=== PATIENT | male | born 1940 | race Caucasian/White ===

== ENCOUNTER → 2018-03-20 10:23 | Outpatient (CLI) | payer MEDICARE, SELFPAY ==
[2018-03-20 11:21] LABS: Add Manual Diff / Slide Review NO; Basophils Percent Auto 1.1 % (0-2); Eosinophils Percent Auto 6.7 % (2-4); Hematocrit 42.5 % (41-53); Hemoglobin 14.5 g/dL (13.5-17.5); Lymphocytes Percent Auto 21.4 % (25-40); Mean Corpuscular Hemoglobin 28.3 PG (26-34); Mean Corpuscular Volume 83.1 fL (80-100); Monocytes Percent Auto 11.7 % (3-14); Neutrophils Absolute Auto 3400 /uL (3000-5900); Neutrophils Percent Auto 59.1 % (50-75); Platelet Count 244 X10^3/uL (150-400); Red Blood Cell Count 5.12 X10^6/uL (4.5-5.9); White Blood Cell Count 5.7 X10^3/uL (4.5-11.0)
[2018-03-20 12:14] LABS: D Dimer 281 ng/mL (<230)
[2018-03-20 12:18] LABS: Alanine Aminotransferase 16 IU/L (21-72); Albumin 4.5 g/dL (3.5-5.0); Albumin Globulin Ratio 1.5 (1.0-2.8); Alkaline Phosphatase 92 U/L (38-126); Aspartate Aminotransferase 26 IU/L (17-59); BUN Creatinine Ratio 26.3 (6-22); Bilirubin Total 0.8 mg/dL (0.2-1.3); Blood Urea Nitrogen 21 mg/dL (9-20); Calcium 9.5 mg/dL (8.4-10.2); Carbon Dioxide 27 mmol/L (22-32); Chloride 104 mmol/L (98-107); Estimated Glomerular Filt Rate > 60.0 mL/min (>60); Glucose 84 mg/dL (80-110); HEMOLYSIS < 15 (0-50); Potassium 4.3 mmol/L (3.4-5.1); Sodium 144 mmol/L (137-145); Total Protein 7.5 g/dL (6.3-8.2)
[2018-03-20 12:31] LABS: Troponin I < 0.012 ng/mL (0.01-0.034)
[2018-03-20 12:53] LABS: Thyroid Stimulating Hormone 2.97 uIU/mL (0.47-4.68)
== END ==
PROVIDERS: Family Provider Family Medicine; PCP Family Medicine; Visit Provider Internal Medicine
DX: I10 Essential (primary) hypertension (principal); R06.00 Dyspnea, unspecified; I48.91 Unspecified atrial fibrillation
CPT/HCPCS: 36415; 80053; 83880; 84443; 84484; 85025; 85379

== ENCOUNTER → 2018-03-26 08:34 | Outpatient (CLI) | payer MEDICARE, SELFPAY ==
--- NOTE | 2018-03-26 08:36 | DI.CT.S_ITS ---
PROCEDURE: CT ANGIO CHEST INDICATIONS: Shortness of breath. TECHNIQUE: After the administration of intravenous contrast, 2 mm thick sections acquired from the pulmonary apices to the posterior costophrenic angles. 3-dimensional maximum intensity projection (MIP) coronal and sagittal reformats were then acquired through the thorax. For radiation dose reduction, the following was used: automated exposure control, adjustment of mA and/or kV according to patient size. COMPARISON: None. FINDINGS: Image quality: Excellent. Pulmonary arteries: Pulmonary arteries are normal in size, and demonstrate no intraluminal filling defects to suggest central pulmonary embolism. Lungs and pleura: There is a spiculated area of consolidation within the left lung apex, which measures approximately 2.9 x 2.2 cm (image 29, series 4). Bronchial wall thickening is noted involving the left lower lobe. Paraseptal emphysematous changes and mild centrilobular emphysematous changes are noted within the bilateral lung apices. No large area of consolidation is evident. There is no pleural effusion or pneumothorax. Mediastinum: Heart size is mildly enlarged, without pericardial effusion. No mediastinal or hilar adenopathy. There is aortic atherosclerosis. Aneurysmal dilatation of the ascending thoracic aorta is present, measuring up to 4.3 cm. Esophagus is normal in caliber. There is a moderate-sized hiatal hernia. Bones and chest wall: No suspicious bony lesions. Ribs and thoracic spine appear intact throughout. Moderate multilevel degenerative changes of the spine and shoulders are noted. Thyroid gland is not adequately evaluated. No axillary or supraclavicular adenopathy. Abdomen: Included portions of the upper abdomen demonstrate extensive diverticulosis of the transverse colon. There is non-masslike enlargement of the right adrenal gland. IMPRESSION: 1. No pulmonary emboli. 2. Left upper lobe nodule/mass. CT guided percutaneous biopsy is recommended for diagnosis. 3. Cardiomegaly without overt heart failure. 4. Ascending thoracic aorta aneurysm. 5. Extensive colonic diverticulosis. Dictated by: Angelo Rucker M.D. on 03/26/2018 at 11:04 Approved by: Angelo Rucker M.D. on 03/26/2018 at 11:13
--- NOTE | 2018-03-26 08:36 | DI.ECHO.S_ITS ---
[facility] +---------+ : : [address] : : : : [id number] : : : : Phone: [phone]+ Echocardiogram Report + + :Name: TANO QUACH Study Date: 03/26/2018 Height: 68 in : :[facility] Weight: 215 lb : : Gender: Male BSA: 2.1 m2 : :: 1940 Age: 77 yrs BP: 160/94 mmHg: :Reason For Study: Dyspnea : : Performed By: Renetta Harrison : :Referring: DENITA MAST : + + Interpretation Summary There is mild concentric left ventricular hypertrophy. Left ventricular systolic function is normal without focal wall motion abnormalities. The ejection fraction is estimated to be 55-60%. Diastolic function could not be accurately assessed due to atrial fibrillation. The right ventricle is mildly dilated. Right ventricular systolic function is at the lower limits of normal. The right ventricular systolic pressure is estimated at 30 mmHg assuming a right atrial pressure of 8 mm Hg. The left atrium is severely dilated. The right atrium is moderately dilated. There is at most mild aortic stenosis. There is mild aortic regurgitation. There is no other significant valvular heart disease. The aortic root is mildly dilated. The ascending aorta is mildly enlarged. Procedure: A two-dimensional transthoracic echocardiogram with color flow and Doppler was performed. The study quality was technically adequate. Comparison is made with the echocardiogram of 5-4-07. The patient was in atrial fibrillation with heart rates between 54-74 bpm during the exam. Left Ventricle: The left ventricle is normal in size. There is mild concentric left ventricular hypertrophy. Left ventricular systolic function is normal without focal wall motion abnormalities. The ejection fraction is estimated to be 55-60%. Diastolic function could not be accurately assessed due to atrial fibrillation. Right Ventricle: The right ventricle is mildly dilated. Right ventricular systolic function is at the lower limits of normal. Atria: The left atrium is severely dilated. The right atrium is moderately dilated. The interatrial septum is intact with no evidence for an atrial septal defect. Mitral Valve: The mitral valve leaflets appear mildly thickened, but open well. There is trace mitral regurgitation. Aortic Valve: The aortic valve is trileaflet. The aortic valve is moderately calcified. Leaflet mobility is mild to moderately reduced. There is mild aortic stenosis. There is mild aortic regurgitation. Tricuspid Valve: The tricuspid valve leaflets are thin and pliable. There is mild tricuspid regurgitation. The right ventricular systolic pressure is estimated at 30 mmHg assuming a right atrial pressure of 8 mm Hg. Pulmonic Valve: The pulmonic valve is not well seen, but is grossly normal. There is trace pulmonic regurgitation. There is no other significant valvular heart disease. Great Vessels: The aortic root is mildly dilated. The ascending aorta is mildly enlarged. The aortic arch is normal in size. The IVC is dilated (diameter is greater than 2.1 cm) yet it collapses greater than 50% with a sniff. This suggests a right atrial pressure of 8 mm Hg. Pericardium/ Pleura There is no pericardial effusion. There is no pleural effusion. MMode/2D Measurements & Calculations LVIDd: 4.5 cm LVOT diam: 2.2 cm LVIDs: 2.8 cm Ao root diam: 3.9 cm FS: 37.6 % Aortic Jxn: 3.3 cm IVSd: 1.2 cm asc Aorta Diam: 3.8 cm LVPWd: 0.99 cm Ao Arch Diam (Prox Trans): 3.0 cm LV dee. diameter/BSA (cm/m^2): 2.2 LV sys. diameter/BSA (cm/m^2): 1.3 LA dimension: 4.9 cm RA long axis: 6.6 cm LA A2 area: 30.4 cm2 RA area: 27.0 cm2 LA A4 area: 33.3 cm2 RA vol: 93.5 ml LA length (vol): 7.0 cm RA : 44.3 ml/m2 LA vol: 122.4 ml IVC diam: 2.6 cm LA vol index: 58.1 ml/m2 RVDd major: 6.1 cm RVD1 (basal): 4.3 cm RVD2 (mid): 3.7 cm BARB (plan): 2.1 cm2 Doppler Measurements & Calculations Ao V2 max: 157.9 cm/sec LVOT Max Casper: 70.5 cm/sec Ao V2 mean: 94.8 cm/sec LV V1 max P.0 mmHg Ao max P.0 mmHg LV V1 VTI: 15.1 cm Ao mean P.5 mmHg BARB(I,D): 1.7 cm2 Ao V2 VTI: 35.7 cm BARB(V,D): 1.8 cm2 sev ratio: 0.42 BARB indexed to BSA (cm^2/m^2): 0.79 Med Peak E' Casper: 5.7 cm/sec TR max casper: 234.8 cm/sec Lat Peak E' Casper: 8.3 cm/sec TR max P.1 mmHg MV P1/2t: 61.3 msec PA V2 max: 53.8 cm/sec MVA(VTI): 3.1 cm2 PA V2 mean: 30.7 cm/sec PA mean P.48 mmHg PA Accel Time: 0.07 sec MV V2 mean: 40.4 cm/sec MV P1/2t max casper: 102.4 cm/sec MV mean P.0 mmHg MVA(P1/2t): 3.6 cm2 MV V2 VTI: 19.0 cm Reading Physician:CHRIS
== END ==
PROVIDERS: Family Provider Family Medicine; PCP Family Medicine; Visit Provider Internal Medicine
DX: I35.2 Nonrheumatic aortic (valve) stenosis with insufficiency (principal); I48.91 Unspecified atrial fibrillation; R06.00 Dyspnea, unspecified; R06.02 Shortness of breath; R91.1 Solitary pulmonary nodule; I51.7 Cardiomegaly; I71.2 Thoracic aortic aneurysm, without rupture; K57.30 Diverticulosis of large intestine without perforation or abscess without bleeding; K44.9 Diaphragmatic hernia without obstruction or gangrene
CPT/HCPCS: 0296T; 71275; 93306; Q9967

== ENCOUNTER → 2018-03-26 12:41 | Outpatient (CLI) | payer MEDICARE, SELFPAY ==
--- NOTE | 2018-04-05 17:23 | PM.CARDMON.1 ---
Surveillance Specialist Report Referral & Results Date Patient Seen: 03/26/18 Requesting provider: Jose Bhat Indication: Atrial fibrillation Duration of monitoring (days): 3 Diary information: There were no diary entries Therefore patient triggered events associated with atrial fibrillation and PVCs Data: Patient was continuously in atrial fibrillation Minimum heart rate was 34 beats per minute at 19:11 on 03/26/2018 Maximum heart rate was 145 beats per minute at 08:17 on March 28, 2018 Patient had 1 pause that lasted 3.3 sec. Very rare PVCs were identified comprising less than 1% of identified ventricular depolarizations On average patient's heart rate was between 50 and 100 beats per minute. Impression: Atrial fibrillation as above. A single pause of 3.3 sec was identified No other significant dysrhythmias identified
== END ==
PROVIDERS: Family Provider Family Medicine; PCP Family Medicine; Visit Provider Internal Medicine
DX: I48.91 Unspecified atrial fibrillation (principal)
CPT/HCPCS: 0296T; 0298T

== ENCOUNTER 2018-04-11 07:57 | Day surgery (SDC) | payer MEDICARE, SELFPAY ==
[2018-04-11] VITALS (12 sets, daily range): BP systolic 133–200; BP diastolic 78–113; PULSE 63–90; RESP 15–22; TEMP 36.3–36.8; O2SAT 94–100; BMI 31.9
--- NOTE | 2018-04-11 | PATH_ITS ---
[facility] Accession Number: [id number] . 01 Material submitted: . LUNG MASS . 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 The following tests ordered to be reported by addendum: ALK, EGFR, ROS-1 and PD-L1. . . COMMENT: The results of this evaluation were telephoned to Dr. Ajit Rosario at 0905 on 04/12/2018. . Case reviewed by Dr. Pedro Dewitt, who agrees with the diagnosis. MRV/04/12/2018 . 02 Electronically signed: . Patricio Barrera MD, Pathologist NPI- [id number] . 01 Gross description: . Received in one formalin-filled container labeled with the patient's name and designated lung mass, are three 0.1 cm in diameter, cylindrical-shaped portions of tissue that range in length from 0.2 cm to 0.8 cm, entirely submitted in one cassette. ([id number]) /FRR . 02 Pathologist provided ICD-10: C34.80 . 02 CPT . 963244 Performed at: 01 [facility] [address] [facility] [place], [place], [place] [id number] MD Michel Hays MD Phone: [phone] Performed at: 02 [facility] [address] [place], [place] [id number] MD Kale Dewitt MD Phone: [phone]
[2018-04-11 08:37] LABS: Platelet Count 240 X10^3/uL (150-400)
[2018-04-11 08:55] LABS: INR 1.1 (0.9-1.3); Prothrombin Time 11.8 SECONDS (10.1-12.7)
[2018-04-11] MEDS: MIDAZOLAM 2 MG/2 ML VIAL IV (10:30)
--- NOTE | 2018-04-11 11:07 | DI.CT.S_ITS ---
PROCEDURE: CT BIOPSY LUNG LT Sedation analgesia for 20 minutes. INDICATIONS: lung mass TECHNIQUE: The indications, alternatives, benefits, risks, and possible complications of the procedure were communicated to the patient. Informed written consent from the patient was obtained and placed in the chart. Continuous EKG and hemodynamic monitoring was started by trained personnel. The patient was brought to the CT suite and uniform attendant spiral CT imaging was performed with localization grid. The appropriate site for percutaneous access to the biopsy target was marked, was prepped and draped sterilely, and was infused with local anaesthesia. Under CT guidance, a core biopsy trocar and needle set was advanced to the biopsy target, and specimen(s) were obtained. The trocar and needle were then removed, and the patient was sent for post-procedure monitoring. COMPARISON: [facility], CT, CT ANGIO CHEST, 03/26/2018, 10:34. FINDINGS: Biopsy site: left upper lobe mass Needle: 20 gauge biopsy needle with introducer trocar. Number of passes: 3 Medications: 1% lidocaine for local anaesthesia. IV Fentanyl and Versed for conscious sedation for 20 minutes (see nursing record). Complications: None. IMPRESSION: Successful CT-guided biopsy of left upper lobe lung mass. Dictated by: Alberto Rosario M.D. on 04/11/2018 at 11:12 Approved by: Alberto Rosario M.D. on 04/11/2018 at 11:15
[2018-04-11] MEDS: fentaNYL 100 MCG/2 ML INJ IV (11:44)
--- NOTE | 2018-04-11 12:21 | SUR.PHASEII ---
Post Fentanyl with voiced quick relief to chest pain. With chest pain, location was at needle biopsy site and no issues with resps or sats noted/voiced.
--- NOTE | 2018-04-11 14:00 | DI.RAD.S_ITS ---
PROCEDURE: XR CHEST 1V INDICATIONS: Post Lung Biopsy TECHNIQUE: One view of the chest was acquired. COMPARISON: [facility], CT, CT ANGIO CHEST, 03/26/2018, 10:34. [facility], CR, CHEST 1 VIEW, 01/17/2010, 19:51. FINDINGS: Surgical changes and devices: None. Lungs and pleura: No pleural effusions or pneumothorax. 2.9 x 2.3 cm left upper lobe nodular density is seen, which was also noted on previous CT study. Mediastinum: Mediastinal contours appear normal. Heart size is normal. Bones and chest wall: No suspicious bony lesions. Overlying soft tissues appear unremarkable. IMPRESSION: Left upper lobe mass. No pneumothorax. Dictated by: Robert Blanton M.D. on 04/11/2018 at 14:12 Approved by: Robert Blanton M.D. on 04/11/2018 at 14:15
--- NOTE | 2018-04-11 14:16 | SUR.PHASEII ---
Spoke with Dr. Rosario about CXR findings. Patient understands the need for follow up CXR and if okay the need for monitoring unusual respiratory difficu;lties.
--- NOTE | 2018-04-11 15:24 | DI.RAD.S_ITS ---
PROCEDURE: XR CHEST 1V INDICATIONS: Pneumothorax follow up TECHNIQUE: One view of the chest was acquired. COMPARISON: [facility], CR, XR CHEST 1V, 04/11/2018, 13:40. FINDINGS: Surgical changes and devices: None. Lungs and pleura: There is a small left apical pneumothorax, which is stable compared to last exam. A left upper lobe mass is again noted. No pleural effusions. Mediastinum: Mediastinal contours appear normal. Heart size is normal. Bones and chest wall: No suspicious bony lesions. Overlying soft tissues appear unremarkable. IMPRESSION: 1. Stable small left apical pneumothorax after lung biopsy. The patient denies chest pain or shortness of breath. His vitals are stable. The patient lives in [place], [place] with his girlfriend (significant other). He is home is approximately 20 minutes from [facility]. It is safe to discharge him to Home. I discussed with the patient that if he develops symptoms of chest pain or shortness of breath, he should immediately go to the emergency department. The discharge instructions were also discussed with him by the nursing staff. 2. Left upper lobe mass. Dictated by: Alberto Rosario M.D. on 04/11/2018 at 15:36 Approved by: Alberto Rosario M.D. on 04/11/2018 at 15:43
--- NOTE | 2018-04-11 18:17 | PC.NURSE ---
AT 11am today I gave Denny Reed RN report on this patient in the PACU following a lung biopsy. VSS. see procedural sedation note.
== END 2018-04-11 15:43 | disposition home or self-care (01) ==
PROVIDERS: Radiology Diagnostic Radiology; PCP Family Medicine; Visit Provider Internal Medicine
PROC: BB24ZZZ Computerized Tomography (CT Scan) of Bilateral Lungs (ICD-10-PCS; CPT 32408; principal; 2018-04-11 10:00)
DX: C34.80 Malignant neoplasm of overlapping sites of unspecified bronchus and lung (principal); Z01.812 Encounter for preprocedural laboratory examination; G47.33 Obstructive sleep apnea (adult) (pediatric); R06.00 Dyspnea, unspecified
CPT/HCPCS: 32405; 71045; 77012; 85049; 85610; 88305; J2250; J3010

== ENCOUNTER → 2018-04-30 08:19 | Outpatient (CLI) | payer MEDICARE, SELFPAY ==
[2018-04-30 09:50] LABS: Platelet Count 247 X10^3/uL (150-400)
[2018-04-30 09:58] LABS: INR 1.1 (0.9-1.3); Prothrombin Time 11.9 SECONDS (10.1-12.7)
[2018-04-30 10:05] LABS: BUN Creatinine Ratio 31.3 (6-22); Blood Urea Nitrogen 25 mg/dL (9-20); Calcium 9.6 mg/dL (8.4-10.2); Carbon Dioxide 29 mmol/L (22-32); Chloride 103 mmol/L (98-107); Estimated Glomerular Filt Rate > 60.0 mL/min (>60); Glucose 116 mg/dL (80-110); HEMOLYSIS < 15 (0-50); Potassium 3.8 mmol/L (3.4-5.1); Sodium 143 mmol/L (137-145)
== END ==
PROVIDERS: Internal Medicine; PCP Family Medicine; Visit Provider Hospitalist
DX: I51.9 Heart disease, unspecified (principal); Z01.812 Encounter for preprocedural laboratory examination
CPT/HCPCS: 36415; 80048; 85049; 85610

== ENCOUNTER → 2018-05-06 08:09 | Outpatient (CLI) | payer MEDICARE, SELFPAY ==
[2018-05-06 09:14] LABS: Add Manual Diff / Slide Review NO; Eosinophils Percent Auto 7.3 % (2-4); Hematocrit 44.7 % (41-53); Hemoglobin 15.2 g/dL (13.5-17.5); Lymphocytes Percent Auto 15.8 % (25-40); Mean Corpuscular Hemoglobin 28.2 PG (26-34); Monocytes Percent Auto 8.9 % (3-14); Neutrophils Absolute Auto 3900 /uL (3000-5900); Platelet Count 258 X10^3/uL (150-400); Red Blood Cell Count 5.39 X10^6/uL (4.5-5.9); Red Cell Distribution Width 14.7 % (11.6-14.8); White Blood Cell Count 5.9 X10^3/uL (4.5-11.0)
[2018-05-06 09:44] LABS: Alanine Aminotransferase 19 IU/L (21-72); Albumin 4.5 g/dL (3.5-5.0); Albumin Globulin Ratio 1.4 (1.0-2.8); Alkaline Phosphatase 112 U/L (38-126); Aspartate Aminotransferase 28 IU/L (17-59); Bilirubin Total 0.7 mg/dL (0.2-1.3); Blood Urea Nitrogen 24 mg/dL (9-20); Calcium 9.6 mg/dL (8.4-10.2); Carbon Dioxide 32 mmol/L (22-32); Chloride 104 mmol/L (98-107); Cholesterol 193 mg/dL (140-199); Estimated Glomerular Filt Rate > 60.0 mL/min (>60); Globulin 3.2 g/dL (1.7-4.1); Glucose 123 mg/dL (80-110); HDL Cholesterol 40 mg/dL (40-60); HEMOLYSIS < 15 (0-50); LDL Cholesterol Calculated 115 mg/dL (<100); Potassium 4.5 mmol/L (3.4-5.1); Sodium 147 mmol/L (137-145); Total Protein 7.7 g/dL (6.3-8.2); Triglycerides 192 mg/dL (35-150)
[2018-05-06 10:22] LABS: Prostate Specific Antigen Scrn < 0.064 ng/mL (0.1-4.0)
== END ==
PROVIDERS: PCP Family Medicine; Visit Provider Family Medicine
DX: I10 Essential (primary) hypertension (principal); E78.2 Mixed hyperlipidemia; I48.91 Unspecified atrial fibrillation; R97.20 Elevated prostate specific antigen [PSA]
CPT/HCPCS: 36415; 80053; 80061; 84443; 85025; G0103

== ENCOUNTER → 2018-05-17 08:45 | Outpatient (CLI) | payer MEDICARE, SELFPAY ==
--- NOTE | 2018-05-20 14:20 | PM.PFT.1 ---
Pulmonary Function Test Referral & Results Date Patient Seen: 05/17/18 Requesting provider: Dick Arellano Indication: Lung cancer Results: The spirometry demonstrates an FVC of 3.03 L which is 80% of predicted. The FEV1 was measured at 2.27 L which is 84% of predicted. The FEV1/FVC ratio was 75 which is 103% of predicted. Following the administration of bronchodilator there was no appreciable change. Lung volumes show an SVC of 2.99 L which is 72% of predicted. The diffusing capacity was measured at 20.26 which is 68% of predicted. No hemoglobin value was provided, so no correction for potential anemia could be made, if appropriate. Interpretation: This study demonstrates mild obstructive lung disease based on reduced FEV1 and shape of flow volume loop. There is no significant evidence of improvement following bronchodilator administration There is also mild restrictive lung disease present based on reduction lung volumes There is a more significant reduction in diffusing capacity suggesting some element of disease at the capillary alveolar level This is all consistent with diagnosis of COPD Clinical correlation suggested
== END ==
PROVIDERS: PCP Family Medicine; Visit Provider Internal Medicine Hematology & Oncology
DX: C34.12 Malignant neoplasm of upper lobe, left bronchus or lung (principal)
CPT/HCPCS: 94010; 94060

== ENCOUNTER → 2018-05-21 09:33 | Outpatient (CLI) | payer MEDICARE, SELFPAY ==
[2018-05-21 10:30] LABS: BUN Creatinine Ratio 24.4 (6-22); Blood Urea Nitrogen 22 mg/dL (9-20); Estimated Glomerular Filt Rate > 60.0 mL/min (>60)
== END ==
PROVIDERS: PCP Family Medicine; Visit Provider Family Medicine
DX: Z01.812 Encounter for preprocedural laboratory examination (principal)
CPT/HCPCS: 36415; 82565; 84520

== ENCOUNTER → 2018-05-23 12:52 | Outpatient (CLI) | payer MEDICARE, SELFPAY ==
--- NOTE | 2018-05-23 | DI.CT.S_ITS ---
PROCEDURE: CT CHEST W CON INDICATIONS: NEWLY DIAGNOSED LUNG CANCER TECHNIQUE: After the administration of intravenous contrast, 5 mm thick sections acquired from the pulmonary apices to the posterior costophrenic angles. 7 mm thick coronal and sagittal MIP reformats were acquired. For radiation dose reduction, the following was used: automated exposure control, adjustment of mA and/or kV according to patient size. COMPARISON: [facility], CR, XR CHEST 1V, 04/11/2018, 15:05. [facility], CT, CT ANGIO CHEST, 03/26/2018, 10:34. FINDINGS: Image quality: Excellent. Lungs and pleura: There is a 2.8 x 2.1 cm spiculated mass in the left upper lobe anteriorly, unchanged in size since 03/26/2018. Small left apical pneumothorax seen on 04/11/2018 has resolved. Mild emphysema. No pleural effusions or pneumothorax. Central and peripheral airways are patent and normal in caliber. Mediastinum: Heart size is normal. No pericardial effusion. No mediastinal or hilar adenopathy by size criteria. Thoracic aorta and central pulmonary arteries are normal in size. Moderate aortic calcification consistent with atherosclerosis. Esophagus is normal in caliber. There is a small moderate sized hiatal hernia. Bones and chest wall: No suspicious bony lesions. No vertebral body compression fractures. No axillary or supraclavicular adenopathy by size criteria. Thyroid gland is normal. Abdomen: Visualized upper abdominal solid organs appear normal. Upper abdominal bowel loops are normal in caliber. Atherosclerotic plaques noted in the proximal abdominal aorta. Colonic diverticula are present. IMPRESSION: 1. Spiculated mass in the left upper lobe anteriorly consistent with lung cancer. 2. Mild emphysema. 3. No mediastinal or hilar lymphadenopathy. 4. Hiatal hernia. 5. Colonic diverticulosis. Dictated by: Alberto Rosario M.D. on 05/23/2018 at 16:48 Approved by: Alberto Rosario M.D. on 05/23/2018 at 16:59
--- NOTE | 2018-05-23 12:54 | DI.MRI.S_ITS ---
PROCEDURE: MR HEAD/BRAIN WO/W CON INDICATIONS: NEWLY DIAGNOSED LUNG CANCER TECHNIQUE: Noncontrast axial T1 spin echo, axial T2 fast spin echo, sagittal and axial FLAIR, coronal T2 fast spin echo, axial gradient echo, axial diffusion and ADC through the brain. After the administration of contrast, axial and coronal 3D VIBE or T1 spin echo with fat saturation through the brain. COMPARISON: None. FINDINGS: Image quality: Excellent. CSF Spaces: Basal cisterns are patent. No extra-axial fluid collections. Ventricles are normal in size and shape. Brain: No midline shift. No intracranial bleeds or masses. No abnormal intracranial enhancement. The brainstem appears normal. Diffusion-weighted images demonstrate no acute ischemic insults. No areas of encephalomalacia. No GRE weighted abnormalities identified in the brain parenchyma. A few, scattered, punctate foci of increased T2 signal noted in the periventricular and subcortical white matter tracts. Normal intravascular flow voids are present. Skull and face: Calvarial marrow is normal in signal. Orbits appear normal. Sinuses: Polypoid mucosal thickening noted in the maxillary sinuses bilaterally. Mild mucosal thickening scattered throughout the ethmoid air cells bilaterally. The mastoids appear clear. IMPRESSION: 1. No acute intracranial disease process. 2. No evidence of metastatic disease. 3. Moderate, diffuse cerebral volume loss. 4. Mild periventricular and subcortical white matter chronic microvascular ischemic changes. 5. Bilateral maxillary sinus and ethmoid air cell mucosal thickening. Please correlate with clinical data to exclude sinusitis. Dictated by: Manisha Mata MD, PhD on 05/23/2018 at 15:13 Approved by: Manisha Mata MD, PhD on 05/23/2018 at 15:17
== END ==
PROVIDERS: PCP Family Medicine; Visit Provider Internal Medicine Hematology & Oncology
DX: C34.12 Malignant neoplasm of upper lobe, left bronchus or lung (principal); J43.9 Emphysema, unspecified; K44.9 Diaphragmatic hernia without obstruction or gangrene; K57.90 Diverticulosis of intestine, part unspecified, without perforation or abscess without bleeding
CPT/HCPCS: 70553; 71260; Q9967

== ENCOUNTER → 2018-06-03 14:00 | Outpatient (CLI) | payer MEDICARE, SELFPAY ==
[2018-06-03 16:04] LABS: Blood Urea Nitrogen 27 mg/dL (9-20); Calcium 9.4 mg/dL (8.4-10.2); Carbon Dioxide 32 mmol/L (22-32); Chloride 98 mmol/L (98-107); Estimated Glomerular Filt Rate > 60.0 mL/min (>60); Glucose 95 mg/dL (80-110); HEMOLYSIS < 15 (0-50); Potassium 3.5 mmol/L (3.4-5.1); Sodium 142 mmol/L (137-145)
== END ==
PROVIDERS: PCP Family Medicine; Visit Provider Hospitalist
DX: I50.33 Acute on chronic diastolic (congestive) heart failure (principal)
CPT/HCPCS: 36415; 80048

== ENCOUNTER 2018-06-18 10:43 | Emergency (ER) | payer MEDICARE, SELFPAY ==
[2018-06-18 10:45] VITALS: BP 165/112; PULSE 94; RESP 19; TEMP 36.7; O2SAT 97
--- NOTE | 2018-06-18 11:17 | DI.RAD.S_ITS ---
PROCEDURE: XR CHEST 1V INDICATIONS: cough and lung cancer TECHNIQUE: One view of the chest was acquired. COMPARISON: [facility], , XR CHEST 1V, 04/11/2018, 15:05. FINDINGS: Surgical changes and devices: None. Lungs and pleura: No pleural effusions or pneumothorax. 2.1 x 1.7 cm nodular density is again seen in left upper lung field consistent with previous CT finding of left upper lobe mass. Right lung is clear. Mediastinum: Mediastinal contours appear normal. Heart size is enlarged. Bones and chest wall: No suspicious bony lesions. Overlying soft tissues appear unremarkable. IMPRESSION: Left upper lobe mass. No focal infiltrate or pneumothorax. Cardiomegaly. Dictated by: Robert Blanton M.D. on 06/18/2018 at 11:50 Approved by: Robert Blanton M.D. on 06/18/2018 at 11:52
[2018-06-18 11:21] VITALS: PULSE 76; RESP 26; O2SAT 96
[2018-06-18] MEDS: ALBUTEROL/IPRATROPIUM 3 ML AMPUL INH (11:21)
--- NOTE | 2018-06-18 11:27 | ED.URI ---
HPI - URI/Sore Throat General Chief Complaint: Upper Respiratory Symptoms Stated Complaint: Thinks pneumonia Time Seen by Provider: 06/18/18 11:07 Source: patient Mode of arrival: ambulatory Limitations: no limitations History of Present Illness HPI Narrative: Patient is 69-year-old male who presents with productive cough. It has been ongoing for the last for 5 days. He is actually scheduled tomorrow to have a lung mass removed he has known lung cancer. His he also has atrial fibrillation not currently on anticoagulation. He says that he has had significant more productive cough he denies any shortness of breath he has no chest pain no heart palpitations. He overall feels weak and tired he has been shaking no documented fever. MD Complaint: cough Related Data Home Medications Medication Instructions Recorded Confirmed aspirin 81 mg PO DAILY #0 01/17/10 06/18/18 furosemide [Lasix] 40 mg PO QAM 04/25/18 06/18/18 gemfibrozil 1 tab PO BID 06/18/18 06/18/18 Previous Rx's Medication Instructions Recorded metoprolol tartrate 50 mg tablet 50 mg PO QDAY #90 tab 03/14/18 albuterol sulfate 2 puff INHALATION Q4-6H PRN #8 gram 06/18/18 levofloxacin 750 mg PO DAILY #7 tab 06/18/18 Allergies Allergy/AdvReac Type Severity Reaction Status Date / Time No Known Drug Allergies Allergy Verified 05/09/18 10:17 Review of Systems Review of Systems All systems reviewed & are unremarkable except as noted in HPI and below Constitutional Reports fever(s), Denies malaise and Reports weakness ENT Ears, Nose, Mouth, and Throat: Denies change in voice, Denies neck pain and Denies sore throat Cardiovascular Denies chest pain, Denies irregular heart rhythm, Denies lightheadedness, Denies palpitations and Denies orthopnea Respiratory Reports as per HPI Gastrointestinal Gastrointestinal: Denies abdominal pain, Denies change in bowel habits, Denies diarrhea, Denies nausea and Denies vomiting Musculoskeletal Denies neck pain Integumentary/Breasts Denies pruritus, Denies erythema, Denies rash and Denies wounds Neurologic Reports weakness Endocrine Denies palpitations [facility] Medical History Claustrophobia (Acute) Atrial fibrillation (Chronic) Cataract (Chronic 2012) Diverticular disease (Chronic 2016) Hearing loss (Chronic) Hemorrhoids (Chronic) Hypertension (Chronic) Ulcerative colitis (Chronic) Urinary incontinence (Chronic 1992) Chicken pox (Resolved) Fractures (Resolved 2013) Measles (Resolved) Mumps (Resolved) Prostate cancer (Resolved) Surgical History History of radical prostatectomy (Acute) Anesthesia complication (Resolved) History of hip replacement (Resolved 2007) History of knee replacement (Resolved 2013) Status post hernia repair (Resolved) Social History household members: spouse Smoking Status: Former smoker Exam Initial Vital Signs Initial Vital Signs: Vital Signs Temperature 98.0 F 06/18/18 10:45 Pulse Rate 94 H 06/18/18 10:45 Respiratory Rate 19 06/18/18 10:45 Blood Pressure 165/112 H 06/18/18 10:45 Pulse Oximetry 97 06/18/18 10:45 GENERAL: Alert and oriented x3 elderly male cooperative no acute distress HEENT: Head atraumatic,EOMI, pupils reactive, face symmetric, moist mucous membranes CARDIOVASCULAR: Regular rate and rhythm without murmurs, rubs or gallops. RESPIRATORY: Decreased breath sounds at bases speaks in full sentences no wheezing rales or rhonchi ABDOMEN: Soft, nontender. Normoactive bowel sounds all 4 quadrants. No guarding or rebound. EXTREMITIES: Normal range of motion, no clubbing or edema. Neurovascularly intact NEUROLOGICAL: Alert and oriented x4.Normal gait and speech. Cranial nerves II through XII grossly intact. SKIN: Warm, dry, no laceration, no petechiae, no rashes or lesions. Course Orders Ordered: ED Orders 06/18/18 11:16 Consult to Respiratory Therapy Evaluate & Treat EKG-12 Lead Stat 06/18/18 11:17 XR chest 1V Stat 06/18/18 11:25 B Type Natriuretic Peptide Stat Complete Blood Count AUTO DIFF Stat Comprehensive Metabolic Panel Stat Lactate (Lactic Acid) Stat Partial Thromboplastin Time Stat Prothrombin Time INR Stat Troponin & CK Cardiac Panel Stat 06/18/18 11:52 Blood Culture Stat Discontinued Medications Albuterol/Ipratropium (Duoneb) 3 ml INH NOW ONE Stop: 06/18/18 11:17 Last Admin: 06/18/18 11:21 Dose: 3 ml Sodium Chloride (Normal Saline 0.9%) 1,000 mls @ 150 mls/hr IV CONT MICHAEL Last Infusion: 06/18/18 13:22 Dose: 0 mls/hr Admin: 06/18/18 11:45 Dose: 150 mls/hr Vital Signs - 8 hr 06/18/18 10:45 06/18/18 11:21 06/18/18 12:32 Temperature 98.0 F Pulse Rate 94 H 76 92 H Respiratory Rate 19 26 H 23 Blood Pressure 165/112 H Blood Pressure [Left Arm] 135/71 Pulse Oximetry 97 96 96 MDM - URI/Sore Throat Medical Records Attestation: I reviewed the patient's medical records. Lab Data Attestation: I reviewed the patient's lab results. Result diagrams: 06/18/18 11:25 06/18/18 11:25 Lab Results 06/18/18 06/18/18 06/18/18 Range/Units 11:25 11:25 11:25 WBC 7.2 (4.5-11.0) X10^3/uL RBC 4.67 (4.5-5.9) X10^6/uL Hgb 13.4 L (13.5-17.5) g/dL Hct 39.2 L (41-53) % MCV 83.9 (80-100) fL MCH 28.7 (26-34) PG MCHC 34.3 (30-36) % RDW 14.4 (11.6-14.8) % Plt Count 247 (150-400) X10^3/uL Neut % (Auto) 71.9 (50-75) % Lymph % (Auto) 11.8 L (25-40) % Hamlin % (Auto) 10.6 (3-14) % Eos % (Auto) 4.7 H (2-4) % Baso % (Auto) 1.0 (0-2) % Neut # (Auto) 5200 (8074-6861) /uL PT 12.4 (10.1-12.7) SECONDS INR 1.1 (0.9-1.3) APTT 32 (26.4-36.2) SECONDS Sodium 141 (137-145) mmol/L Potassium 3.9 (3.4-5.1) mmol/L Chloride 101 (98-107) mmol/L Carbon Dioxide 30 (22-32) mmol/L BUN 17 (9-20) mg/dL Creatinine 0.80 (0.66-1.25) mg/dL Estimated GFR > 60.0 (>60) mL/min BUN/Creatinine Ratio 21.3 (6-22) Glucose 105 (80-110) mg/dL Lactate (0.7-2.1) mmol/L Calcium 9.4 (8.4-10.2) mg/dL Total Bilirubin 0.8 (0.2-1.3) mg/dL AST 27 (17-59) IU/L ALT 20 L (21-72) IU/L Alkaline Phosphatase 111 (38-126) U/L Total Creatine Kinase 132 (55-170) U/L CK-MB (CK-2) 0.97 (<2.37) ng/mL CK-MB (CK-2) Rel Index 0.7 L (1.5-5.0) % Troponin I < 0.012 (0.01-0.034) ng/mL B-Natriuretic Peptide 356.0 H (<100) Total Protein 7.9 (6.3-8.2) g/dL Albumin 4.4 (3.5-5.0) g/dL Globulin 3.5 (1.7-4.1) g/dL Albumin/Globulin Ratio 1.3 (1.0-2.8) 06/18/18 Range/Units 11:25 WBC (4.5-11.0) X10^3/uL RBC (4.5-5.9) X10^6/uL Hgb (13.5-17.5) g/dL Hct (41-53) % MCV (80-100) fL MCH (26-34) PG MCHC (30-36) % RDW (11.6-14.8) % Plt Count (150-400) X10^3/uL Neut % (Auto) (50-75) % Lymph % (Auto) (25-40) % Hamlin % (Auto) (3-14) % Eos % (Auto) (2-4) % Baso % (Auto) (0-2) % Neut # (Auto) (4371-5625) /uL PT (10.1-12.7) SECONDS INR (0.9-1.3) APTT (26.4-36.2) SECONDS Sodium (137-145) mmol/L Potassium (3.4-5.1) mmol/L Chloride (98-107) mmol/L Carbon Dioxide (22-32) mmol/L BUN (9-20) mg/dL Creatinine (0.66-1.25) mg/dL Estimated GFR (>60) mL/min BUN/Creatinine Ratio (6-22) Glucose (80-110) mg/dL Lactate 1.0 (0.7-2.1) mmol/L Calcium (8.4-10.2) mg/dL Total Bilirubin (0.2-1.3) mg/dL AST (17-59) IU/L ALT (21-72) IU/L Alkaline Phosphatase (38-126) U/L Total Creatine Kinase (55-170) U/L CK-MB (CK-2) (<2.37) ng/mL CK-MB (CK-2) Rel Index (1.5-5.0) % Troponin I (0.01-0.034) ng/mL B-Natriuretic Peptide (<100) Total Protein (6.3-8.2) g/dL Albumin (3.5-5.0) g/dL Globulin (1.7-4.1) g/dL Albumin/Globulin Ratio (1.0-2.8) Imaging Data Chest x-ray: Radiologist's impression: ROCEDURE: XR CHEST 1V INDICATIONS: cough and lung cancer TECHNIQUE: One view of the chest was acquired. COMPARISON: [facility], , XR CHEST 1V, 04/11/2018, 15:05. FINDINGS: Surgical changes and devices: None. Lungs and pleura: No pleural effusions or pneumothorax. 2.1 x 1.7 cm nodular density is again seen in left upper lung field consistent with previous CT finding of left upper lobe mass. Right lung is clear. Mediastinum: Mediastinal contours appear normal. Heart size is enlarged. Bones and chest wall: No suspicious bony lesions. Overlying soft tissues appear unremarkable. IMPRESSION: Left upper lobe mass. No focal infiltrate or pneumothorax. Cardiomegaly. Dictated by: Robert Blanton M.D. on 06/18/2018 at 11:50 ECG Data Attestation: I personally reviewed and interpreted this ECG as follows: Prior ECG tracings: available for review Interpretation: AF flutter but rate [address] changes MDM Narrative Medical decision making narrative: Patient overall is feeling much better after albuterol. He does not appear toxic blood work and x-ray within normal limits. He feels ready and able to go home. He is not going to have surgery tomorrow. They are asking about if radiation is an option. I refer them back to the oncology for thoracic surgery for those answers. Discharge Plan Departure Patient Disposition: Home Clinical Impression: Atypical pneumonia Discharge Date/Time: 06/18/18 13:26 Interventions: ED Discharge Assessment Last Done: 06/18/18 13:25 Instructions: DI for Atypical Pneumonia Activity Restrictions/Additional Instructions: *You have been diagnosed with atypical pneumonia *What to do: *Continue to take medications as directed Levaquin 1 tab once a day 7 days Albuterol 1-2 puffs every 4 hr if needed for cough or shortness of breath *Follow up with your primary care provider in 2-3 days *Return to ER if you should have fever, worsening cough, decreased intake or any new, worsening or concerning symptoms Prescriptions: New levofloxacin 750 mg tablet 750 mg PO DAILY Qty: 7 RF: 0 albuterol sulfate 90 mcg/actuation HFA aerosol inhaler 2 puff INHALATION Q4-6H PRN (Reason: shortness of breath or wheezing) Qty: 8 RF: 0 No Action aspirin 81 mg Tablet,Delayed Release (Dr/Ec) 81 mg PO DAILY Qty: 0 RF: 0 metoprolol tartrate 50 mg tablet 50 mg PO QDAY Qty: 90 RF: 3 furosemide [Lasix] 40 mg Tablet 40 mg PO QAM RF: 0 gemfibrozil 600 mg tablet 1 tab PO BID RF: 0
[2018-06-18 11:36] LABS: Add Manual Diff / Slide Review NO; Eosinophils Percent Auto 4.7 % (2-4); Hematocrit 39.2 % (41-53); Hemoglobin 13.4 g/dL (13.5-17.5); Lymphocytes Percent Auto 11.8 % (25-40); Mean Corpuscular HGB Conc 34.3 % (30-36); Mean Corpuscular Hemoglobin 28.7 PG (26-34); Mean Corpuscular Volume 83.9 fL (80-100); Monocytes Percent Auto 10.6 % (3-14); Neutrophils Absolute Auto 5200 /uL (3000-5900); Neutrophils Percent Auto 71.9 % (50-75); Platelet Count 247 X10^3/uL (150-400); Red Blood Cell Count 4.67 X10^6/uL (4.5-5.9); Red Cell Distribution Width 14.4 % (11.6-14.8); White Blood Cell Count 7.2 X10^3/uL (4.5-11.0)
[2018-06-18 11:39] LABS: INR 1.1 (0.9-1.3); Prothrombin Time 12.4 SECONDS (10.1-12.7)
[2018-06-18 11:42] LABS: PTT Partial Thromboplastin Tim 32 SECONDS (26.4-36.2)
[2018-06-18 11:44] LABS: Alanine Aminotransferase 20 IU/L (21-72); Albumin 4.4 g/dL (3.5-5.0); Albumin Globulin Ratio 1.3 (1.0-2.8); Alkaline Phosphatase 111 U/L (38-126); Aspartate Aminotransferase 27 IU/L (17-59); BUN Creatinine Ratio 21.3 (6-22); Bilirubin Total 0.8 mg/dL (0.2-1.3); Blood Urea Nitrogen 17 mg/dL (9-20); Calcium 9.4 mg/dL (8.4-10.2); Carbon Dioxide 30 mmol/L (22-32); Chloride 101 mmol/L (98-107); Creatine Kinase 132 U/L (55-170); Estimated Glomerular Filt Rate > 60.0 mL/min (>60); Globulin 3.5 g/dL (1.7-4.1); Glucose 105 mg/dL (80-110); HEMOLYSIS 48 (0-50); Potassium 3.9 mmol/L (3.4-5.1); Sodium 141 mmol/L (137-145); Total Protein 7.9 g/dL (6.3-8.2)
[2018-06-18] MEDS: SODIUM CHLORIDE 0.9% 1,000 ML 150 ML IV (11:45)
[2018-06-18 11:57] LABS: Troponin I < 0.012 ng/mL (0.01-0.034)
[2018-06-18 12:00] LABS: CKMB % Relative Index 0.7 % (1.5-5.0); Creatine Kinase MB 0.97 ng/mL (<2.37)
[2018-06-18 12:32] VITALS: BP 135/71; PULSE 92; RESP 23; O2SAT 96
--- NOTE | 2018-06-20 16:49 | PC.NURSE ---
Placed follow up phone call. Pt reports feeling improvement though still short of breath. Has no questions about his discharge instruction.
== END 2018-06-18 13:26 | disposition home or self-care (01) ==
PROVIDERS: Emergency Provider Emergency Medicine; PCP Family Medicine
DX: J18.9 Pneumonia, unspecified organism (principal)
CPT/HCPCS: 36415; 36591; 71045; 80053; 82550; 82553; 83605; 83880; 84484; 85025; 85610; 85730; 87040; 93005; 94640; 96360; 96361; 99283; 99285

== ENCOUNTER → 2018-08-12 09:30 | Oncology outpatient (ONC) | payer MEDICARE, SELFPAY ==
--- NOTE | 2018-04-25 13:51 | ONC.CONS ---
History of Present Illness - Data of Consult Consult date: 04/25/18 Primary Care Provider: Sotero Vela MD - Consult Narrative Reason for consult: Newly diagnosed stage I left upper lung adenocarcinoma. Narrative: Naga Lorenz is a 77 year old male with multiple medical problems most notable for hypertension, hyperlipidemia, atrial fibrillation and prostate cancer. Patient came in today accompanied by his girlfriend. Patient reported that for the past 1 year, he has been having significant shortness of breath and is also getting progressively worse. He denies any apparent hemoptysis or apparent cough. Patient also reports significant fatigue. Because of the worsening shortness of breath, patient eventually went to see his primary care provider on March 26, 2018. He was evaluated by Jose Collier. A CTA was obtained to evaluate for possible pulmonary embolism. The scan showed no evidence of pulmonary embolism, instead a left upper lung 2.9 x 2.2 cm mass was noted. No mediastinal or hilar adenopathy was noted. 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 Patient underwent echocardiogram on the same day which revealed mild concentric left ventricular hypertrophy and the left ventricular systolic function was normal without focal wall motion abnormalities. The ejection fraction was estimated to be 55-60%. Diastolic function could not be accurately assessed due to atrial fibrillation. On April 11, [address]-guided biopsy of the left upper lung nodule. 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 PD-L1 expression level is still pending. Patient presents here today. He denies any headache, the denies any double vision or blurred vision, denies any new onset musculoskeletal pain, and denies any nausea or vomiting or diarrhea or constipation. PE denies any abdominal pain. Denies any diarrhea or constipation. Patient has had chronic lower back pain status post previous surgical management. Patient said that he is severely claustrophobic. He does not think his able to undergo further imaging testing. CC: Dick Arellano MD Home Medications and Allergies Home Medications Medication Instructions Recorded Confirmed Type ASPIRIN (Aspirin Low Dose) 81 mg PO Q DAY #0 01/17/10 04/25/18 History gemfibrozil 600 mg tablet See Label Instructions .ROUTE 03/14/18 04/25/18 Rx .COMPLEX #180 tab metoprolol tartrate 50 mg tablet 50 mg PO QDAY #90 tab 03/14/18 04/25/18 Rx furosemide [Lasix] 40 mg PO DAILY 04/25/18 04/25/18 History Allergies Allergy/AdvReac Type Severity Reaction Status Date / Time No Known Drug Allergies Allergy Verified 03/28/18 13:52 Medical History - Medical, Surgical, Family History Medical History: Medical History (Last Updated 04/25/18 @ 14:22 by Dick Arellano MD) Claustrophobia Atrial fibrillation Cataract Onset Date: 2012 Diverticular disease Onset Date: 2015 Hearing loss Hemorrhoids Hypertension Ulcerative colitis Urinary incontinence Onset Date: 1992 Chicken pox Fractures Onset Date: 2013 Measles Mumps Prostate cancer Surgical History: Surgical History (Last Updated 04/25/18 @ 14:07 by Dick Arellano MD) History of radical prostatectomy Anesthesia complication History of hip replacement Onset Date: 2007 History of knee replacement Onset Date: 2013 Status post hernia repair Family History: Family History Brother Heart disease Father Cancer Colon cancer Mother Heart disease COPD (chronic obstructive pulmonary disease) - Social History Smoking Status: Former smoker Review of Systems All systems PM: reviewed and no additional remarkable complaints except as stated Exam Vital signs: Temperature 98.3, pulse rate 76, respiratory rate 17, blood pressure 152/85, pulse ox 98% on room air, weight 211.9 lb, height 172.6 cm Narrative: Patient appears comfortable not in any acute respiratory distress, pleasant and cooperative, he is accompanied by his girlfriend/significant other to the clinic today. HEENT: Normocephalic, atraumatic, extraocular muscle movement intact, pupils are round equal and reactive to light and accommodations, anicteric sclera. Neck: Supple, no palpable thyromegaly, no palpable lymphadenopathy, no JVD. Respiratory: I do not appreciate any abnormal breathing sounds on my examination. Clear to auscultation. No wheezes. Cardiovascular: Regular rate rhythm examination. S1-S2 normal. No murmurs: Rubs. Or gallops. Abdomen: Soft, nontender, no palpable organomegaly, bowel sounds normal. Lower extremities: No pitting edema noted on examination. Neurologic exam: Patient is awake and alert and oriented x3, no focal sensory or motor deficit. Psychiatric evaluation: Patient is in adequate mood: Good judgment Assessment and Plan (1) Cancer of upper lobe of left lung Current visit: Yes 04/25/18 14:39 I reviewed the pathology results with the patient. It is an adenocarcinoma with genetic mutations of EGFR L858R. The significance of the genetic testing is of unknown significance in this apparently stage I lung cancer. The CT scan of the chest does not see any enlarged lymph nodes in the mediastinum. Clinically, he does not have any obvious signs or symptoms suggestive of possible distant metastasis. The left upper lung nodule/mass was less than 3 cm in size. I talked with the patient that the options include surgery, or stereotactic radiotherapy. I will have him see our surgeon for evaluation of positive possible surgical resection. I will also order a pulmonary function test. I will see the patient after the surgical consultation. If patient is deemed not a good candidate for surgery, I will refer the patient to Radiation for consideration of stereotactic radiotherapy. Of note patient is severely claustrophobia. Patient thinks that he is not able to do any imaging studies at this moment. If imaging studies as needed patient will need sedation. 04/25/18 18:15
[2018-04-25 14:05] VITALS: BP 152/85; PULSE 76; RESP 17; TEMP 36.8; O2SAT 98
--- NOTE | 2018-04-25 14:07 | PC.NURSE ---
Patient has severe claustrophobia. He stated that even with a open MRI or CT scanner, he would be very uncomfortable. He believes he would need some medication to sedate or relax him before hand. Zara MCDANIEL
--- NOTE | 2018-06-03 16:23 | P.PNONC_ITS ---
PN -Subjective Interval history: He saw the cartridge loading operator and has been put on Lasix 40 mg in the morning and 80 mg in the afternoon. Patient said that he has felt less short of breath after taking the Lasix. Patient has been followed by her by his cartridge loading operator. Otherwise patient reports no headache no double vision I no blurred vision. Patient came here today for review of the CT scan as well as the MRI scan of the brain. In addition patient has already been scheduled for a PET scan then followed with a thoracic surgeon Dr. Car in a [place]. - Patient Self-Reported Symptoms SR respiratory issues: Shortness of breath - Additional ROS All systems PM: reviewed and no additional remarkable complaints except as stated Home Medications and Allergies Home Medications Medication Instructions Recorded Confirmed Type ASPIRIN (Aspirin Low Dose) 81 mg PO Q DAY #0 01/17/10 06/03/18 History gemfibrozil 600 mg tablet See Label Instructions .ROUTE 03/14/18 06/03/18 Rx .COMPLEX #180 tab metoprolol tartrate 50 mg tablet 50 mg PO QDAY #90 tab 03/14/18 06/03/18 Rx furosemide [Lasix] 40 mg PO QAM 04/25/18 06/03/18 History alprazolam [Xanax] 0.25 mg PO BID #10 tab 05/09/18 06/03/18 Rx furosemide 80 mg PO QACHS 06/03/18 06/03/18 History Allergies Allergy/AdvReac Type Severity Reaction Status Date / Time No Known Drug Allergies Allergy Verified 05/09/18 10:17 Exam Vital signs: Reviewed in the EMR - Constitutional positive no acute distress, positive obese, positive cooperative - Routine HEENT Exam Head: Present: normocephalic, atraumatic Eye: Present: EOMI, PERRL, normal accommodation. Absent: conjunctival icterus ENT: Present: mucous membranes moist - Routine Neck Exam Present: supple. Absent: lymphadenopathy, thyromegaly - Routine Respiratory Exam Present: Clear to auscultation bilaterally. Absent: stridor, wheezes - Routine Cardiovascular Exam Present: RRR, S1, S2. Absent: murmur, gallop, rubs - Routine Abdominal Exam Present: soft, normoactive bowel sounds. Absent: tenderness, distended, organomegaly, mass, hernia - Routine Extremities Exam Absent: edema - Routine Neurological Exam Present: alert, oriented X3, CN II-XII intact. Absent: sensory deficit, motor deficit - Routine Psychiatric Exam Present: normal affect, normal thought process, cooperative, good insight, good judgment Assessment and Plan (1) Cancer of upper lobe of left lung I reviewed the CT scan of the chest results with the patient. The scan showed that the left upper lung spiculated patient has remained stable compared to March of 2018. Furthermore it did not show any evidence of pathologically enlarged mediastinal lymph nodes. The MRI brain showed no evidence of intracranial metastasis. I talked with the patient that most likely he has a stage I lung cancer. I once again talked with them that the surgical resection is the best option for cure of his underlying lung cancer. I talked with the patient that I will follow up after the surgery and will review the surgical pathology results and discuss with them about if adjuvant chemotherapy is needed or not. Patient voiced understanding. I will see the patient end of June.
[2018-06-03 16:44] VITALS: BP 142/94; PULSE 81; RESP 18; TEMP 36.6; O2SAT 98
[2018-06-24 13:47] VITALS: BP 138/100; PULSE 83; RESP 22; TEMP 36.5; O2SAT 97
--- NOTE | 2018-06-24 14:23 | ONC.PN ---
PN -Subjective Interval history: Chief complaint 88 year old with newly diagnosed left lung cancer History of present illness Naga Lorenz is a 77 year old male with multiple medical problems most notable for hypertension, hyperlipidemia, atrial fibrillation and prostate cancer. He presented with one year history of significant and progressive shortness of breath. He was seen by his primary care provider Dr. Bhat on March 26, 2018. CTA was obtained to evaluate for possible pulmonary embolism. The scan showed no evidence of pulmonary embolism, instead a left upper lung 2.9 x 2.2 cm mass was noted. No mediastinal or hilar adenopathy was noted. 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 Patient underwent echocardiogram on the same day which revealed mild concentric left ventricular hypertrophy and the left ventricular systolic function was normal without focal wall motion abnormalities. The ejection fraction was estimated to be 55-60%. Diastolic function could not be accurately assessed due to atrial fibrillation. On April 11, [address]-guided biopsy of the left upper lung nodule. 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 PD-L1 expression level is still pending. Patient presents here today. Interim Events: Patient also has been evaluated by thoracic surgeon Dr. Saleh. According to patient's description, surgery was discussed with patient. During the visit he was asking to walk up and down the stairs. Patient is scheduled to see Dr. Saleh sent this Sunday. Patient recently has been visiting ER frequently due to what he called atypical pneumonia. Patient was given Levaquin 750 mg for 7 days. Today is the last day of the treatment. Patient said that his breathing gradually gets better especially during the past 2 days. Patient did have low-grade fever 99.3-99.6 during the past one week and now has resolved. Patient said that he was coughing a lot with lots of phlegm. But he denies any hemoptysis. During past 1 week, patient stopped taking Lasix because on the drug pamphlet, it said that do not take the diuretics together with Levaquin. Due to the recent pneumonia, patient is very much worried about if he is able to tolerate the surgery. He was wondering if he would get a radiation oncology consult about the stereotactic radiotherapy. - Patient Self-Reported Symptoms SR Constitution: Fever, Chills, Fatigue/Malaise SR ears, nose, mouth, throat issues: Congestion, Cough SR respiratory issues: Cough, Shortness of breath, Difficulty breathing, Mucous SR Cardiovascular issues: Chest pain, discomfort, tightness, Shortness of breath with activity or lying flat SR Skin issues: Dry skin SR Genitourinary issues: Incontinence - Additional ROS All systems PM: reviewed and no additional remarkable complaints except as stated Home Medications and Allergies Home Medications Medication Instructions Recorded Confirmed Type aspirin 81 mg PO DAILY #0 01/17/10 06/24/18 History metoprolol tartrate 50 mg tablet 50 mg PO QDAY #90 tab 03/14/18 06/24/18 Rx albuterol sulfate 2 puff INHALATION Q4-6H PRN #8 gram 06/18/18 06/24/18 Rx gemfibrozil 1 tab PO BID 06/18/18 06/24/18 History levofloxacin 750 mg PO DAILY #7 tab 06/18/18 06/24/18 Rx Allergies Allergy/AdvReac Type Severity Reaction Status Date / Time No Known Drug Allergies Allergy Verified 05/09/18 10:17 Exam Vital signs: Temp 97.7 F 06/24/18 13:47 Pulse 83 06/24/18 13:47 Resp 22 06/24/18 13:47 BP 138/100 H 06/24/18 13:47 Pulse Ox 97 06/24/18 13:47 ECOG 1-2 Narrative: General: appears chronically ill, not in any acute respiratory distress, pleasant and cooperative. HEENT: Normocephalic, atraumatic, extraocular muscle movement intact, pupils are round equal and reactive to light and accommodations, anicteric sclera. Neck: Supple, no palpable thyromegaly, no palpable lymphadenopathy, no JVD. Respiratory: I do not appreciate any abnormal breathing sounds on my examination. No wheezes. Cardiovascular: Regular rate rhythm examination. S1-S2 normal. No murmurs: Rubs. Or gallops. Abdomen: Soft, nontender, no palpable organomegaly, bowel sounds normal. Lower extremities: No pitting edema noted on examination. Neurologic exam: Patient is awake and alert and oriented x3, no focal sensory or motor deficit. Psychiatric evaluation: Patient is in adequate mood and good judgment Results - Labs Reviewed. Assessment and Plan (1) Cancer of upper lobe of left lung I talked with the patient about the treatment options. I agree that the stereotactic radiotherapy is one possible option. Since patient refused surgical option, I will refer the patient to Radiation Oncology at [facility] for further discussion. (2) Dyspnea on exertion Clinically, I think that patient is highly suspicious for fluid overload. I encouraged patient to resume Lasix as instructed by his ultrasound applications specialist. I also encouraged the patient to follow up with his oncologist for further evaluation of the fluid status. (3) COPD (chronic obstructive pulmonary disease) I am suspicious that the patient may be experiencing some exacerbation of his underlying COPD. Patient needs to follow up with his primary care provider for further evaluation and treatment. Patient voiced understanding. (4) Urinary incontinence Patient has had chronic urinary incontinence especially when he is coughing after the prostate surgery for prostate adenocarcinoma. It has been at major complaint for the patient. I encouraged the patient to establish care with a urologist for management.
[2018-07-25 13:41] VITALS: BP 139/86; PULSE 89; RESP 19; TEMP 36.5; O2SAT 99
--- NOTE | 2018-07-25 14:11 | P.PNONC_ITS ---
PN -Subjective Interval history: On July 03, 2018 patient underwent robotic thoracoscopic left upper lobectomy by Dr. Car in [place], [place]. Patient tolerated the procedure well. Patient presents here today for post surgery follow-up. Pathology showed unifocal, 2.2 x 1.5 cm, adenocarcinoma, acinar with a focally lepidic pattern, G1-2/4, no visceral pleural invasion, no LVI, margins negative, number of N1 nodes with metastatic carcinoma 0/6, N2 nodes with metastatic carcinoma 0/3, N3 nodes with metastatic carcinoma 0/0. Pathlogical staging (AJCC 8th ed): pT1c, pN0. Patient otherwise has been experiencing some panic attack for the last couple of days. Yesterday patient experienced 2 episodes. Currently he is using CBD with some relief. Otherwise. He reports no fever and no chills. No cough. Somewhat shortness of breath. The saturation is about 99%. History of present illness Naga Lorenz is a 77 year old male with multiple medical problems most notable for hypertension, hyperlipidemia, atrial fibrillation and prostate cancer. He presented with one year history of significant and progressive shortness of breath. He was seen by his primary care provider Dr. Bhat on March 26, 2018. CTA was obtained to evaluate for possible pulmonary embolism. The scan showed no evidence of pulmonary embolism, instead a left upper lung 2.9 x 2.2 cm mass was noted. No mediastinal or hilar adenopathy was noted. 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 Patient underwent echocardiogram on the same day which revealed mild concentric left ventricular hypertrophy and the left ventricular systolic function was normal without focal wall motion abnormalities. The ejection fraction was estimated to be 55-60%. Diastolic function could not be accurately assessed due to atrial fibrillation. On April 11, [address]-guided biopsy of the left upper lung nodule. 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 PD-L1 expression level is still pending. Patient presents here today. - Patient Self-Reported Symptoms SR Constitution: Night Sweats SR ears, nose, mouth, throat issues: Congestion, Cough SR respiratory issues: Shortness of breath SR Cardiovascular issues: Chest pain, discomfort, tightness, Shortness of breath with activity or lying flat SR Skin issues: Dry skin SR Genitourinary issues: Incontinence - Additional ROS All systems PM: reviewed and no additional remarkable complaints except as stated Home Medications and Allergies Home Medications Medication Instructions Recorded Confirmed Type aspirin 81 mg PO DAILY #0 01/17/10 07/25/18 History metoprolol tartrate 50 mg tablet 50 mg PO QDAY #90 tab 03/14/18 07/25/18 Rx albuterol sulfate 2 puff INHALATION Q4-6H PRN #8 gram 06/18/18 07/25/18 Rx gemfibrozil 1 tab PO BID 06/18/18 07/25/18 History levofloxacin 750 mg PO DAILY #7 tab 06/18/18 07/25/18 Rx alprazolam [Xanax] 0.5 mg PO BID #30 tab 07/25/18 Rx apixaban [Eliquis] 5 mg PO PER PKG DIR 07/25/18 07/25/18 History Allergies Allergy/AdvReac Type Severity Reaction Status Date / Time No Known Drug Allergies Allergy Verified 05/09/18 10:17 Exam Vital signs: Last Vital Signs Temp 97.7 F 07/25/18 13:41 Pulse 89 07/25/18 13:41 Resp 19 07/25/18 13:41 BP 139/86 07/25/18 13:41 Pulse Ox 99 07/25/18 13:41 ECOG 1 - Constitutional positive no acute distress, positive obese, positive cooperative - Routine HEENT Exam Head: Present: normocephalic, atraumatic Eye: Present: EOMI, PERRL, normal accommodation. Absent: conjunctival icterus ENT: Present: mucous membranes moist - Routine Neck Exam Present: supple, full ROM, trachea midline. Absent: lymphadenopathy, thyromegaly - Routine Chest/Breast/Axilla Exam Comments: Left sided chest wall with surgical wound noted - Routine Respiratory Exam Present: Clear to auscultation bilaterally, decreased breath sounds. Absent: respiratory distress, wheezes - Routine Cardiovascular Exam Present: RRR, S1, S2. Absent: murmur, gallop, rubs, S3 - Routine Abdominal Exam Present: soft, normoactive bowel sounds. Absent: tenderness, distended, organomegaly, mass, hernia - Routine Extremities Exam Absent: edema - Routine Neurological Exam Present: alert, oriented X3, CN II-XII intact, normal reflexes, moving all extremities, normal tone, normal speech. Absent: sensory deficit, motor deficit - Routine Psychiatric Exam Present: normal affect, normal thought process, cooperative, good insight, good judgment Results - Labs Reviewed Assessment and Plan (1) Cancer of upper lobe of left lung March 26, 2018, incidental image finding of a left upper lung 2.9 x 2.[address] intended for evaluation of possible PE. April 11, 2018 CT-guided biopsy of the left upper lung nodule: adenocarcinoma with bronchial alveolar/papillary features. 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 July 03, 2018, robotic thoracoscopic left upper lobectomy by Dr. Car in [place], [place]. Pathology: unifocal, 2.2 x 1.5 cm, adenocarcinoma, acinar with a focally lepidic pattern, G1-2/4, no visceral pleural invasion, no LVI, margins negative, number of N1 nodes with metastatic carcinoma 0/6, N2 nodes with metastatic carcinoma 0/3, N3 nodes with metastatic carcinoma 0/0. Pathlogical staging (AJCC 8th ed): pT1c, pN0. Plan: 1. CT scan of the chest with contrast in December of 2018. 2. CBC CMP at the time of the scan. 3. We will see the patient after the scan. (2) COPD (chronic obstructive pulmonary disease) Stable. Continue monitor. (3) Urinary incontinence Patient has had chronic urinary incontinence especially when he is coughing after the prostate surgery for prostate adenocarcinoma. It has been at major complaint for the patient. I encouraged the patient to establish care with a urologist for management.
--- NOTE | 2018-08-12 08:09 | P.PNONC_ITS ---
PN -Subjective Interval history: The patient is a 77-year-old male with recently confirmed adenocarcinoma of the lung, left upper lobe. Patient underwent robotic thorascopic left upper lobectomy July 03, 2018. In review of oncologist Dr Arciniega most recent visit notes dated 07/25/2018 plan is to continue surveillance with a CT scan December 2018. Nursing referred the patient for a visit today to discuss ongoing anxiety. The patient presents today with his long-time girlfriend Myesha. He states he has been having ?bad anxiety? for the last several weeks. He has been taking Xanax as needed which does seem to help however it also makes him tired he does not like taking it. He also admits to feeling ?depressed a little ?. I asked the patient about suicidal ideations he states ?I have thought about it but I would never go through with it?. When we discussed further he denied ever having a plan in place, he denied ever thinking about how he would commit suicide. When he has had these thoughts in the past he has shared them openly with Myesha. he is adamant he would never harm himself or take his own life and he assures me he has never had a plan only a fleeting thought when the anxiety is bad. He is not had depression or anxiety in the past. It is also noted the symptoms got much worse after his recent lobectomy. He does associate breathlessness with increased anxiety as well. He states he is breathless with minimal activity. Otherwise seems to be doing okay. He and his girlfriend are planning to go to [place] for the winter which they have been doing the past several years. He is looking forward to this. They enjoyed a warm, the sunshine. They have a lot of friends. They play cards and shuffleboard. They plan to leave after [place]. Again the pt states he is looking forward to this. History of present illness Naga Lorenz is a 77 year old male with multiple medical problems most notable for hypertension, hyperlipidemia, atrial fibrillation and prostate cancer. He presented with one year history of significant and progressive shortness of breath. He was seen by his primary care provider Dr. Bhat on March 26, 2018. CTA was obtained to evaluate for possible pulmonary embolism. The scan showed no evidence of pulmonary embolism, instead a left upper lung 2.9 x 2.2 cm mass was noted. No mediastinal or hilar adenopathy was noted. 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 Patient underwent echocardiogram on the same day which revealed mild concentric left ventricular hypertrophy and the left ventricular systolic function was normal without focal wall motion abnormalities. The ejection fraction was estimated to be 55-60%. Diastolic function could not be accurately assessed due to atrial fibrillation. On April 11, [address]-guided biopsy of the left upper lung nodule. 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 PD-L1 expression level is still pending. On July 03, 2018 patient underwent robotic thoracoscopic left upper lobectomy by Dr. Car in [place], [place]. Pathology showed unifocal, 2.2 x 1.5 cm, adenocarcinoma, acinar with a focally lepidic pattern, G1-2/4, no visceral pleural invasion, no LVI, margins negative, number of N1 nodes with metastatic carcinoma 0/6, N2 nodes with metastatic carcinoma 0/3, N3 nodes with metastatic carcinoma 0/0. Pathlogical staging (AJCC 8th ed): pT1c, pN0. - Patient Self-Reported Symptoms SR Constitution: Night Sweats SR ears, nose, mouth, throat issues: Congestion, Cough SR respiratory issues: Shortness of breath SR Cardiovascular issues: Chest pain, discomfort, tightness, Shortness of breath with activity or lying flat SR Skin issues: Dry skin SR Genitourinary issues: Incontinence Home Medications and Allergies Home Medications Medication Instructions Recorded Confirmed Type metoprolol tartrate 50 mg tablet 50 mg PO QDAY #90 tab 03/14/18 07/25/18 Rx albuterol sulfate 2 puff INHALATION Q4-6H PRN #8 gram 06/18/18 07/25/18 Rx gemfibrozil 1 tab PO BID 06/18/18 07/25/18 History alprazolam [Xanax] 0.5 mg PO BID #30 tab 07/25/18 Rx apixaban [Eliquis] 5 mg PO PER PKG DIR 07/25/18 07/25/18 History furosemide [Lasix] TID 08/12/18 History sertraline [Zoloft] 25 mg PO DAILY #7 tab 08/12/18 Rx sertraline [Zoloft] 50 mg PO DAILY #30 tab 08/12/18 Rx Allergies Allergy/AdvReac Type Severity Reaction Status Date / Time No Known Drug Allergies Allergy Verified 05/09/18 10:17 Exam - Constitutional positive no acute distress - Routine Neck Exam Present: supple. Absent: lymphadenopathy - Routine Respiratory Exam Present: Clear to auscultation bilaterally, decreased breath sounds. Absent: rales, respiratory distress, rhonchi, wheezes - Routine Cardiovascular Exam Present: RRR, S1, S2. Absent: murmur, gallop, rubs, JVD - Routine Abdominal Exam Present: soft, normoactive bowel sounds. Absent: tenderness - Routine Extremities Exam Absent: cyanosis, edema - Routine Skin Exam Present: intact. Absent: cyanosis - Routine Neurological Exam Present: alert, oriented X3, normal speech - Routine Psychiatric Exam Present: normal affect, normal thought process, cooperative, good insight, good judgment. Absent: suicidal ideation, homicidal ideation, auditory hallucinations, visual hallucinations, depressed, anxious, agitated Assessment and Plan (1) Cancer of upper lobe of left lung March 26, 2018, incidental image finding of a left upper lung 2.9 x 2.[address] intended for evaluation of possible PE. April 11, 2018 CT-guided biopsy of the left upper lung nodule: adenocarcinoma with bronchial alveolar/papillary features. 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 July 03, 2018, robotic thoracoscopic left upper lobectomy by Dr. Car in [place], [place]. Pathology: unifocal, 2.2 x 1.5 cm, adenocarcinoma, acinar with a focally lepidic pattern, G1-2/4, no visceral pleural invasion, no LVI, margins negative, number of N1 nodes with metastatic carcinoma 0/6, N2 nodes with metastatic carcinoma 0/3, N3 nodes with metastatic carcinoma 0/0. Pathlogical staging (AJCC 8th ed): pT1c, pN0. Plan: 1. CT scan of the chest with contrast in December of 2018. 2. CBC CMP at the time of the scan. 3. We will see the patient after the scan. (2) COPD (chronic obstructive pulmonary disease) Will refer the pt for pulmonary rehab noting previous diagnosis of COPD now with recent lobectomy clearly he has chronic dyspnea which adds to his anxiety. Patient is agreeable. Continue albuterol as needed. (3) Urinary incontinence Patient has had chronic urinary incontinence especially when he is coughing after the prostate surgery for prostate adenocarcinoma. It has been at major complaint for the patient. I encouraged the patient to establish care with a urologist for management. He remains on lasix TID (4) Generalized anxiety disorder with panic attacks Current visit: Yes Status: Acute Patient talks quite openly today. He is clearly having chronic anxiety with exacerbations of panic attacks. Xanax has been affective when the patient does have a panic attack. However, understandably Xanax is making him tired. He is hopeful to try another medication. After discussing at length with the patient I do think it is very appropriate to initiate sertraline 25 mg x7 days then increase the dose to 50 mg. The patient will also schedule an appointment with JOSE M Wu for counseling, I do believe the pt will greatly benefit from a few counseling sessions. Additionally I will refer the patient to pulmonary rehab. He has underlying COPD now with lobectomy clearly he has significantly decreased lung capacity which is exacerbating his anxiety. He has albuterol to use as needed. He did try a pulmonary function test in the past however he has claustrophobia and could not complete the test. I do think he would benefit from pulmonary rehab. - Time Spent with Patient 30 mins
[2018-08-12 09:40] VITALS: BP 146/85; PULSE 73; RESP 18; TEMP 36.4; O2SAT 96
--- NOTE | 2018-08-16 13:37 | ONC.NAV ---
Description: Counseling Activity: Met with pt and his SO, Myesha, for counseling in the context of severe anxiety attacks and recent suicidal ideation. Pt shared that he was diagnosed with lung cancer 3-months ago, followed by a surgical left upper lobectomy in June. He has been experiencing severe anxiety attacks, which he is able to associate with breathlessness, or anticipatory breathlessness. He has been using Xanax with good benefit, and was recently started on Zoloft by RIDGE Larkin. He has been taking the Zoloft for 2-days, and feels so much better, that he hasn't used an Xanax. LEVEL GL[employer] FORMING MACHINE OPERATOR reinforced his feelings of improvement, and also shared that perhaps he is feeling more calm with the idea of having the medicine, as it usually takes at least 1-full week-3 weeks to begin to feel the beginning of therapeutic benefit. To this he seemed to have some insight and agreed. He is also feeling down for a variety of situational reasons, stating that their dog of 16-years recently , they had to delay leaving for their annual snowbird leave to [place] due to his need for medical treatments and stability before they leave. He has been given a script for an increase of his Zoloft to 50-mg, which he plans to fill with his mail-order pharmacy in order to have enough for at least part of the time that they will be down there. Pt and SO both described a time a few weeks ago where pt become very depressed, lasting approx. 5-days, during which he began to have thoughts of wanting to . He did not have a plan or intent to complete suicide, however he did ask his SO to lock his gun away. He denies any suicidal thoughts since that time, and in fact now recognizes how much he wants to live and be there for his children, grandchildren, great grandchildren. He is looking forward to returning to [place] at the beginning of September, where they also have a large social network and activities that he is missing, as well. LEVEL GLASS FORMING MACHINE OPERATOR discussed ways to begin to notice his thoughts in relation to the onset of dyspnea, and how these thoughts all on their own can exacerbate anxiety before the breathlessness gets out of control. Discussed some of the ways he manages stress, which right now is walking, a lot of walking. LEVEL GLASS FORMING MACHINE OPERATOR encouraged what Paige Rodriguez had spoken with him about, which is to f/u with pulmonary rehab. Reiterated that they can help him strengthen and improve this dyspnea, and how they also understand the cyclic relationship of anxiety and the fear of air hunger. Pt was able to share some of the insights that he has had about his adjustment to this disease and surgery. LEVEL GLASS FORMING MACHINE OPERATOR also reinforced what his SO has been saying to him, which is that he was told by the surgeon that there was no residual evidence of cancer, that he is overall in very good health. LEVEL GLASS FORMING MACHINE OPERATOR shared the normalcy of people to experience fear and anxiety with a cancer diagnosis, and this brings the awareness of one's mortality to the forefront. Pt was able to acknowledge that this has certainly been part of his struggle. Plan: Pt feels like he is improving with the anxiety and depression, and has begun utilizing the medications to help him with dyspnea. LEVEL GLASS FORMING MACHINE OPERATOR encouraged him/SO to reach out again should he decide he would like additional counseling or assistance.
== END ==
PROVIDERS: PCP Family Medicine; Visit Provider Internal Medicine Hematology & Oncology
DX: C34.12 Malignant neoplasm of upper lobe, left bronchus or lung (principal); F41.0 Panic disorder [episodic paroxysmal anxiety]; J44.9 Chronic obstructive pulmonary disease, unspecified; R32 Unspecified urinary incontinence; Z85.46 Personal history of malignant neoplasm of prostate
CPT/HCPCS: 99205; 99214; 99215

== ENCOUNTER → 2019-05-19 08:03 | Outpatient (CLI) | payer MEDICARE, SELFPAY ==
[2019-05-19 08:48] LABS: Add Manual Diff / Slide Review NO; Basophils Absolute Auto 100 /uL (0-100); Basophils Percent Auto 1.1 % (0-2); Eosinophils Absolute Auto 300 /uL (0-450); Eosinophils Percent Auto 5.6 % (2-4); Hematocrit 44.4 % (41-53); Lymphocytes Absolute Auto 1200 /uL (1100-4500); Lymphocytes Percent Auto 20.6 % (25-40); Mean Corpuscular HGB Conc 33.7 % (30-36); Mean Corpuscular Hemoglobin 28.2 PG (26-34); Mean Corpuscular Volume 83.7 fL (80-100); Monocytes Absolute Auto 600 /uL (0-900); Monocytes Percent Auto 10.8 % (3-14); Neutrophils Absolute Auto 3700 /uL (1500-7000); Neutrophils Percent Auto 61.9 % (50-75); Platelet Count 278 X10^3/uL (150-400); Red Cell Distribution Width 15.2 % (11.6-14.8)
[2019-05-19 09:04] LABS: Alanine Aminotransferase 14 IU/L (21-72); Albumin 4.5 g/dL (3.5-5.0); Albumin Globulin Ratio 1.4 (1.0-2.8); Alkaline Phosphatase 125 U/L (38-126); Aspartate Aminotransferase 27 IU/L (17-59); BUN Creatinine Ratio 23.3 (6-22); Bilirubin Total 0.8 mg/dL (0.2-1.3); Blood Urea Nitrogen 21 mg/dL (9-20); Calcium 9.8 mg/dL (8.4-10.2); Carbon Dioxide 32 mmol/L (22-32); Chloride 100 mmol/L (98-107); Cholesterol 200 mg/dL (140-199); Estimated Glomerular Filt Rate > 60.0 mL/min (>60); Globulin 3.2 g/dL (1.7-4.1); Glucose 122 mg/dL (80-110); HDL Cholesterol 38 mg/dL (40-60); HEMOLYSIS < 15 (0-50); LDL Cholesterol Calculated 117 mg/dL (<100); Potassium 4.2 mmol/L (3.4-5.1); Sodium 142 mmol/L (137-145); Total Protein 7.7 g/dL (6.3-8.2); Triglycerides 227 mg/dL (35-150)
[2019-05-19 09:31] LABS: Prostate Specific Antigen Scrn < 0.064 ng/mL (0.1-4.0)
[2019-05-19 09:43] LABS: Thyroid Stimulating Hormone 4.55 uIU/mL (0.47-4.68)
== END ==
PROVIDERS: PCP Family Medicine; Visit Provider Family Medicine
DX: G25.0 Essential tremor (principal); R97.20 Elevated prostate specific antigen [PSA]; Z98.890 Other specified postprocedural states; E78.2 Mixed hyperlipidemia
CPT/HCPCS: 36415; 80053; 80061; 84153; 84443; 85025; G0103

== ENCOUNTER → 2020-01-13 08:56 | Outpatient (CLI) | payer MEDICARE, SELFPAY ==
[2020-01-13 11:08] LABS: BUN Creatinine Ratio 24.4 (6-22); Blood Urea Nitrogen 21 mg/dL (9-20); Calcium 9.8 mg/dL (8.4-10.2); Carbon Dioxide 31 mmol/L (22-32); Chloride 101 mmol/L (98-107); Estimated Glomerular Filt Rate > 60.0 mL/min (>60); Glucose 108 mg/dL (80-110); HEMOLYSIS < 15 (0-50); Potassium 4.4 mmol/L (3.4-5.1); Sodium 140 mmol/L (137-145)
== END ==
PROVIDERS: PCP Family Medicine; Referring Provider Hospitalist; Visit Provider Nurse Practitioner
DX: I48.20 Chronic atrial fibrillation, unspecified (principal); R53.83 Other fatigue
CPT/HCPCS: 36415; 80048

== ENCOUNTER → 2020-03-05 10:04 | Outpatient (CLI) | payer MEDICARE, SELFPAY ==
[2020-03-05 10:41] LABS: Add Manual Diff / Slide Review NO; Basophils Absolute Auto 0 /uL (0-100); Basophils Percent Auto 0.8 % (0-2); Eosinophils Absolute Auto 300 /uL (0-450); Eosinophils Percent Auto 6.5 % (2-4); Hematocrit 41.1 % (41-53); Hemoglobin 14.1 g/dL (13.5-17.5); Lymphocytes Absolute Auto 1200 /uL (1100-4500); Lymphocytes Percent Auto 23.8 % (25-40); Mean Corpuscular HGB Conc 34.3 % (30-36); Mean Corpuscular Volume 84.7 fL (80-100); Monocytes Absolute Auto 500 /uL (0-900); Monocytes Percent Auto 10.2 % (3-14); Neutrophils Absolute Auto 3000 /uL (1500-7000); Neutrophils Percent Auto 58.7 % (50-75); Platelet Count 238 X10^3/uL (150-400); Red Blood Cell Count 4.85 X10^6/uL (4.5-5.9); Red Cell Distribution Width 14.5 % (11.6-14.8); White Blood Cell Count 5.2 X10^3/uL (4.5-11.0)
[2020-03-05 11:22] LABS: BUN Creatinine Ratio 20.9 (6-22); Blood Urea Nitrogen 19 mg/dL (9-20); Calcium 9.5 mg/dL (8.4-10.2); Carbon Dioxide 28 mmol/L (22-32); Chloride 103 mmol/L (98-107); Estimated Glomerular Filt Rate > 60.0 mL/min (>60); Glucose 112 mg/dL (80-110); HEMOLYSIS < 15 (0-50); Magnesium 2.1 mg/dL (1.6-2.3); Potassium 3.6 mmol/L (3.4-5.1); Sodium 138 mmol/L (137-145)
[2020-03-05 11:54] LABS: Thyroid Stimulating Hormone 4.29 uIU/mL (0.47-4.68)
== END ==
PROVIDERS: PCP Family Medicine; Referring Provider Family Medicine; Visit Provider Family Medicine
DX: C34.90 Malignant neoplasm of unspecified part of unspecified bronchus or lung (principal); E78.2 Mixed hyperlipidemia; I10 Essential (primary) hypertension; R20.0 Anesthesia of skin; R20.2 Paresthesia of skin
CPT/HCPCS: 36415; 80048; 83735; 84443; 85025

== ENCOUNTER → 2020-03-18 13:22 | Outpatient (CLI) | payer MEDICARE, SELFPAY ==
--- NOTE | 2020-03-18 13:23 | DI.US.S_ITS ---
PROCEDURE: US CAROTID DOPPLER BI INDICATIONS: TIA TECHNIQUE: Color and pulse Doppler interrogation was performed of both carotid systems, with image documentation and velocity measurements. COMPARISON: [facility], MR, MR HEAD/BRAIN WO/W CON, 05/23/2018, 14:20. FINDINGS: Stenosis calculations are based on SRU (Society of Radiologists in Ultrasound) criteria. The flow velocities and the arterial waveforms are normal within both carotid arterial systems. Atherosclerotic plaque is seen on both sides. The estimated degree of internal carotid artery stenosis is less than 50%. Antegrade flow is confirmed within both vertebral arteries. IMPRESSION: No hemodynamically significant stenosis is seen. Atherosclerotic plaque is noted bilaterally. Dictated by: Frank Curran M.D. on 03/18/2020 at 15:05 Approved by: Frank Curran M.D. on 03/18/2020 at 15:06
--- NOTE | 2020-03-18 14:18 | DI.ECHO.S_ITS ---
Echocardiogram Report + + :Name: TANO QUACH Study Date: 03/18/2020 Height: 68 in : :[facility] Weight: 209 lb : : Gender: Male BSA: 2.1 m2 : :: 1940 Age: 79 yrs BP: 152/84 mmHg: :Reason For Study: TIA : :Ordering Physician: LUCIUS LARAPerformed By: Yadi Norton : :Referring: LUCIUS LARA : + + Interpretation Summary Normal-sized LV. The ejection fraction is estimated to be 60-65%. There has been no significant change in LVEF since the previous exam. The right ventricle is normal in size and function. The aortic valve is moderately calcified. There is mildly reduced leaflet mobility. The peak aortic velocity is 1.8 m/sec. The aortic valve mean gradient is 6 mmHg. The peak aortic velocity on the previous exam was 1.6 m/sec. There is no hemodynamically significant valvular aortic stenosis. There is mild aortic regurgitation. Compared to the prior echo study, there has been no change in the severity of aortic regurgitation. There is mild tricuspid regurgitation. Compared to the prior echo exam, there has been no change in TR severity. The right ventricular systolic pressure is estimated to be at least 27 mmHg based on an estimated right atrial pressure of 3 mm Hg. The ascending aorta is moderately enlarged. 4.4 cm in diameter. In March 2018 it was 3.8 cm. Procedure: A two-dimensional transthoracic echocardiogram with color flow and Doppler was performed. The study quality was technically adequate. Comparison is made with the echocardiogram of 03/26/2018. The patient was in atrial fibrillation with heart rates between 62-70 bpm during the exam. Left Ventricle: The left ventricle is normal in size. Proximal septal thickening is noted. There is no echo evidence for significant left ventricular outflow tract obstruction. There is no thrombus. The ejection fraction is estimated to be 60-65%. There has been no significant change since the previous exam. There are no focal wall motion abnormalities. Diastolic function could not be accurately assessed due to atrial fibrillation. Right Ventricle: The right ventricle is normal in size and function. Atria: The left atrium is severely dilated. The left atrium has remained unchanged in size since the prior echo exam. The right atrium is moderate to severely dilated. The right atrium has mildly increased in size since the prior echo exam. There is no Doppler evidence for an interatrial shunt. Mitral Valve: The mitral valve leaflets are mildly calcified. There is mild to moderate mitral annular calcification. There is mild mitral regurgitation. There are multiple regurgitant jets present. Aortic Valve: The aortic valve is trileaflet. The aortic valve is moderately calcified. There is moderate aortic valve sclerosis. There is mildly reduced leaflet mobility. The peak aortic velocity is 1.8 m/sec. The aortic valve mean gradient is 6 mmHg. The peak aortic velocity on the previous exam was 1.6 m/sec. There is no hemodynamically significant valvular aortic stenosis. There is mild aortic regurgitation. Compared to the prior echo study, there has been no change in the severity of aortic regurgitation. Tricuspid Valve: The tricuspid valve is normal in structure and function. There is mild tricuspid regurgitation. The right ventricular systolic pressure is estimated to be at least 27 mmHg based on an estimated right atrial pressure of 3 mm Hg. Compared to the prior echo exam, there has been no change in TR severity. Pulmonic Valve: The pulmonic valve is not well seen, but is grossly normal. There is mild pulmonic regurgitation. Great Vessels: The aortic root is normal size. The ascending aorta is moderately enlarged. The IVC is of normal diameter and collapses greater than 50% with a sniff. This suggests a low right atrial pressure of 3 mm Hg. Pericardium/ Pleura There is no pericardial effusion. There is no pleural effusion. MMode/2D Measurements & Calculations LVIDd: 5.1 cm LVOT diam: 2.2 cm LVIDs: 3.5 cm Ao root diam: 3.2 cm FS: 31.5 % asc Aorta Diam: 4.4 cm EPSS: 1.0 cm IVSd: 0.89 cm LVPWd: 0.91 cm LV dee. diameter/BSA (cm/m^2): 2.5 LV sys. diameter/BSA (cm/m^2): 1.7 LA A2 area: 29.4 cm2 RA long axis: 6.4 cm LA A4 area: 34.7 cm2 RA area: 26.8 cm2 LA length (vol): 7.4 cm RA vol: 94.7 ml LA vol: 116.6 ml RA : 45.5 ml/m2 LA vol index: 56.0 ml/m2 IVC diam: 1.7 cm RVD1 (basal): 3.9 cm TAPSE: 1.8 cm Doppler Measurements & Calculations Ao V2 max: 180.8 cm/sec LVOT Max Casper: 83.4 cm/sec Ao V2 mean: 113.3 cm/sec LV V1 max P.8 mmHg Ao max P.9 mmHg LV V1 VTI: 16.9 cm Ao mean P.4 mmHg BARB(I,D): 1.9 cm2 Ao V2 VTI: 33.6 cm BARB(V,D): 1.8 cm2 sev ratio: 0.50 BARB indexed to BSA (cm^2/m^2): 0.92 AI P1/2t: 803.2 msec AI dec slope: 128.8 cm/sec2 MV E max casper: 110.6 cm/sec TR max casper: 263.7 cm/sec MV A max casper: 17.6 cm/sec TR max P.6 mmHg MV E/A: 6.3 PA V2 max: 59.6 cm/sec Med Peak E' Casper: 8.4 cm/sec PA V2 mean: 38.6 cm/sec E/E' med: 13.2 PA mean P.69 mmHg Lat Peak E' Casper: 14.9 cm/sec PA pr(Accel): 53.3 mmHg E/E' lat: 7.4 E/e' average: 10.3 MV dec time: 0.20 sec SV(LVOT): 64.3 ml Reading Physician:04:55 PM
== END ==
PROVIDERS: PCP Family Medicine; Referring Provider Family Medicine; Visit Provider Family Medicine
DX: G45.9 Transient cerebral ischemic attack, unspecified (principal); I08.3 Combined rheumatic disorders of mitral, aortic and tricuspid valves; I77.89 Other specified disorders of arteries and arterioles
CPT/HCPCS: 93306; 93880

== ENCOUNTER → 2020-06-16 14:42 | Outpatient (CLI) | payer MEDICARE, SELFPAY ==
--- NOTE | 2020-06-16 14:43 | DI.RAD.S_ITS ---
PROCEDURE: XR HIP W PEL IF DONE RT 2V INDICATIONS: Hip pain TECHNIQUE: AP pelvis and lateral view of the right hip acquired. COMPARISON: [facility], , PELVIS W UNILATERAL HIP RIGHT, 12/16/2013, 9:17. [facility], , HIP 2V RIGHT, 12/11/2006, 13:40. FINDINGS: Bones: Patient is status post right hip arthroplasty, with hardware components in expected positions. The hip joint appears congruent. The visualized bony structures appear intact. Moderate left hip joint narrowing. 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 Bones are osteopenic. Soft tissues: Overlying postoperative changes are noted. No suspicious soft tissue densities. IMPRESSION: 1. Stable appearance of right hip arthroplasty. 2. Moderate left hip joint degeneration. Dictated by: Lucas Reid [facility] Interpreted: Robert Blanton MD on 06/16/2020 at 15:30 Approved by: Robert Blanton M.D. on 06/16/2020 at 16:53
== END ==
PROVIDERS: PCP Family Medicine; Referring Provider Family Medicine; Visit Provider Family Medicine
DX: M25.559 Pain in unspecified hip (principal); M16.11 Unilateral primary osteoarthritis, right hip; Z96.641 Presence of right artificial hip joint
CPT/HCPCS: 73502

== ENCOUNTER → 2020-11-09 09:11 | Outpatient (CLI) | payer MEDICARE, SELFPAY ==
[2020-11-09 09:56] LABS: Add Manual Diff / Slide Review NO; Basophils Absolute Auto 0 /uL (0-100); Basophils Percent Auto 0.7 % (0-2); Eosinophils Absolute Auto 500 /uL (0-450); Eosinophils Percent Auto 7.5 % (2-4); Hematocrit 41.6 % (41-53); Hemoglobin 14.1 g/dL (13.5-17.5); Lymphocytes Absolute Auto 1500 /uL (1100-4500); Lymphocytes Percent Auto 23.3 % (25-40); Mean Corpuscular HGB Conc 33.9 % (30-36); Mean Corpuscular Hemoglobin 28.7 PG (26-34); Mean Corpuscular Volume 84.7 fL (80-100); Monocytes Absolute Auto 700 /uL (0-900); Monocytes Percent Auto 11.2 % (3-14); Neutrophils Absolute Auto 3700 /uL (1500-7000); Neutrophils Percent Auto 57.3 % (50-75); Platelet Count 246 X10^3/uL (150-400); Red Blood Cell Count 4.91 X10^6/uL (4.5-5.9); Red Cell Distribution Width 15.3 % (11.6-14.8); White Blood Cell Count 6.5 X10^3/uL (4.5-11.0)
[2020-11-09 10:51] LABS: Alanine Aminotransferase 10 IU/L (<50); Albumin 4.4 g/dL (3.5-5.0); Albumin Globulin Ratio 1.7 (1.0-2.8); Alkaline Phosphatase 156 U/L (38-126); Aspartate Aminotransferase 24 IU/L (17-59); BUN Creatinine Ratio 23.9 (6-22); Bilirubin Total 0.8 mg/dL (0.2-1.3); Blood Urea Nitrogen 21 mg/dL (9-20); Carbon Dioxide 30 mmol/L (22-32); Chloride 101 mmol/L (98-107); Cholesterol 200 mg/dL (140-199); Estimated Glomerular Filt Rate > 60.0 mL/min (>60); Globulin 2.6 g/dL (1.7-4.1); Glucose 118 mg/dL (80-110); HDL Cholesterol 47 mg/dL (40-60); HEMOLYSIS < 15 (0-50); LDL Cholesterol Calculated 126 mg/dL (<100); Potassium 3.9 mmol/L (3.4-5.1); Sodium 138 mmol/L (137-145); Triglycerides 134 mg/dL (35-150); Uric Acid 7.2 mg/dL (3.5-8.5)
== END ==
PROVIDERS: PCP Internal Medicine; Referring Provider Internal Medicine; Visit Provider Internal Medicine
DX: E78.2 Mixed hyperlipidemia (principal); I10 Essential (primary) hypertension; I48.20 Chronic atrial fibrillation, unspecified
CPT/HCPCS: 36415; 80053; 80061; 84550; 85025

== ENCOUNTER → 2021-05-21 08:52 | Outpatient (CLI) | payer MEDICARE, SELFPAY ==
[2021-05-21 10:06] LABS: Alanine Aminotransferase 16 IU/L (<50); Albumin 4.2 g/dL (3.5-5.0); Albumin Globulin Ratio 1.7 (1.0-2.8); Alkaline Phosphatase 100 U/L (38-126); Aspartate Aminotransferase 23 IU/L (17-59); BUN Creatinine Ratio 22.7 (6-22); Bilirubin Total 0.9 mg/dL (0.2-1.3); Blood Urea Nitrogen 20 mg/dL (9-20); Carbon Dioxide 30 mmol/L (22-32); Chloride 103 mmol/L (98-107); Cholesterol 116 mg/dL (140-199); Estimated Glomerular Filt Rate > 60.0 mL/min (>60); Globulin 2.5 g/dL (1.7-4.1); Glucose 114 mg/dL (80-110); HDL Cholesterol 41 mg/dL (40-60); HEMOLYSIS < 15 (0-50); LDL Cholesterol Calculated 45 mg/dL (<100); Potassium 3.8 mmol/L (3.4-5.1); Sodium 140 mmol/L (137-145); Total Protein 6.7 g/dL (6.3-8.2); Triglycerides 151 mg/dL (35-150)
== END ==
PROVIDERS: PCP Internal Medicine; Referring Provider Internal Medicine; Visit Provider Internal Medicine
DX: I10 Essential (primary) hypertension (principal); E78.2 Mixed hyperlipidemia; I48.20 Chronic atrial fibrillation, unspecified
CPT/HCPCS: 36415; 80053; 80061

== ENCOUNTER → 2021-11-22 08:23 | Outpatient (CLI) | payer MEDICARE, SELFPAY ==
[2021-11-22 09:40] LABS: Add Manual Diff / Slide Review NO; Basophils Absolute Auto 0 /uL (0-100); Basophils Percent Auto 0.6 % (0-2); Eosinophils Absolute Auto 400 /uL (0-450); Eosinophils Percent Auto 5.3 % (2-4); Hematocrit 40.9 % (41-53); Hemoglobin 13.7 g/dL (13.5-17.5); Lymphocytes Absolute Auto 1800 /uL (1100-4500); Lymphocytes Percent Auto 22.9 % (25-40); Mean Corpuscular HGB Conc 33.4 % (30-36); Mean Corpuscular Hemoglobin 28.1 PG (26-34); Monocytes Absolute Auto 700 /uL (0-900); Monocytes Percent Auto 8.3 % (3-14); Neutrophils Absolute Auto 5000 /uL (1500-7000); Neutrophils Percent Auto 62.9 % (50-75); Platelet Count 218 X10^3/uL (150-400); Red Blood Cell Count 4.86 X10^6/uL (4.5-5.9); Red Cell Distribution Width 15.5 % (11.6-14.8); White Blood Cell Count 7.9 X10^3/uL (4.5-11.0)
[2021-11-22 10:26] LABS: Alanine Aminotransferase 18 IU/L (<50); Albumin 4.3 g/dL (3.5-5.0); Albumin Globulin Ratio 1.5 (1.0-2.8); Alkaline Phosphatase 92 U/L (38-126); Aspartate Aminotransferase 25 IU/L (17-59); BUN Creatinine Ratio 19.1 (6-22); Bilirubin Total 0.8 mg/dL (0.2-1.3); Blood Urea Nitrogen 18 mg/dL (9-20); Carbon Dioxide 32 mmol/L (22-32); Chloride 102 mmol/L (98-107); Cholesterol 136 mg/dL (140-199); Estimated Glomerular Filt Rate > 60.0 mL/min (>60); Globulin 2.9 g/dL (1.7-4.1); Glucose 115 mg/dL (80-110); HDL Cholesterol 37 mg/dL (40-60); HEMOLYSIS < 15 (0-50); LDL Cholesterol Calculated 59 mg/dL (<100); Potassium 3.6 mmol/L (3.4-5.1); Sodium 143 mmol/L (137-145); Total Protein 7.2 g/dL (6.3-8.2); Triglycerides 201 mg/dL (35-150); Uric Acid 7.7 mg/dL (3.5-8.5)
== END ==
PROVIDERS: PCP Internal Medicine; Referring Provider Internal Medicine; Visit Provider Internal Medicine
DX: E78.2 Mixed hyperlipidemia (principal); I10 Essential (primary) hypertension; I48.20 Chronic atrial fibrillation, unspecified; J43.9 Emphysema, unspecified; Z79.01 Long term (current) use of anticoagulants
CPT/HCPCS: 36415; 80053; 80061; 84550; 85025

== ENCOUNTER → 2022-05-19 08:40 | Outpatient (CLI) | payer MEDICARE, SELFPAY ==
[2022-05-19 12:08] LABS: Alanine Aminotransferase 26 IU/L (<50); Albumin Globulin Ratio 1.2 (1.0-2.8); Alkaline Phosphatase 91 U/L (38-126); Aspartate Aminotransferase 29 IU/L (17-59); BUN Creatinine Ratio 22.4 (6-22); Bilirubin Total 0.9 mg/dL (0.2-1.3); Blood Urea Nitrogen 22 mg/dL (9-20); Calcium 8.8 mg/dL (8.4-10.2); Carbon Dioxide 33 mmol/L (22-32); Chloride 99 mmol/L (98-107); Cholesterol 108 mg/dL (140-199); Estimated Glomerular Filt Rate > 60 mL/min (>60); Globulin 3.3 g/dL (1.7-4.1); Glucose 111 mg/dL (80-110); HDL Cholesterol 35 mg/dL (40-60); HEMOLYSIS < 15 (0-50); LDL Cholesterol Calculated 44 mg/dL (<100); Potassium 3.6 mmol/L (3.4-5.1); Sodium 140 mmol/L (137-145); Total Protein 7.3 g/dL (6.3-8.2); Triglycerides 144 mg/dL (35-150)
== END ==
PROVIDERS: PCP Internal Medicine; Referring Provider Internal Medicine; Visit Provider Internal Medicine
DX: I10 Essential (primary) hypertension (principal); C34.12 Malignant neoplasm of upper lobe, left bronchus or lung; I48.20 Chronic atrial fibrillation, unspecified
CPT/HCPCS: 36415; 80053; 80061

== ENCOUNTER → 2023-01-23 08:43 | Outpatient (CLI) | payer MEDICARE, SELFPAY ==
[2023-01-23 10:20] LABS: Hematocrit 36.7 % (41-53); Hemoglobin 12.4 g/dL (13.5-17.5); Mean Corpuscular HGB Conc 33.8 % (30-36); Mean Corpuscular Hemoglobin 27.6 PG (26-34); Mean Corpuscular Volume 81.6 fL (80-100); Platelet Count 187 X10^3/uL (150-400); Red Cell Distribution Width 16.2 % (11.6-14.8); White Blood Cell Count 6.5 X10^3/uL (4.5-11.0)
[2023-01-23 10:44] LABS: Alanine Aminotransferase 20 IU/L (<50); Albumin 3.9 g/dL (3.5-5.0); Albumin Globulin Ratio 1.5 (1.0-2.8); Alkaline Phosphatase 83 U/L (38-126); Aspartate Aminotransferase 24 IU/L (17-59); BUN Creatinine Ratio 17.2 (6-22); Bilirubin Total 0.7 mg/dL (0.2-1.3); Blood Urea Nitrogen 20 mg/dL (9-20); Calcium 8.9 mg/dL (8.4-10.2); Carbon Dioxide 30 mmol/L (22-32); Chloride 99 mmol/L (98-107); Cholesterol 96 mg/dL (140-199); Estimated Glomerular Filt Rate > 60 mL/min (>60); Globulin 2.6 g/dL (1.7-4.1); Glucose 84 mg/dL (80-110); HDL Cholesterol 38 mg/dL (40-60); HEMOLYSIS < 15 (0-50); LDL Cholesterol Calculated 26 mg/dL (<100); Potassium 3.2 mmol/L (3.4-5.1); Sodium 138 mmol/L (137-145); Total Protein 6.5 g/dL (6.3-8.2); Triglycerides 159 mg/dL (35-150); Uric Acid 7.5 mg/dL (3.5-8.5)
[2023-01-23 11:44] LABS: Neutrophils Absolute Manual 2925 /uL (3000-5900); Ovalocytes 1+; Total Cells Counted 100
== END ==
PROVIDERS: PCP Internal Medicine; Referring Provider Internal Medicine; Visit Provider Internal Medicine
DX: C34.12 Malignant neoplasm of upper lobe, left bronchus or lung (principal); E78.2 Mixed hyperlipidemia; I10 Essential (primary) hypertension; I48.20 Chronic atrial fibrillation, unspecified; M1A.9XX0 Chronic gout, unspecified, without tophus (tophi)
CPT/HCPCS: 36415; 80053; 80061; 84550; 85025

== ENCOUNTER → 2023-01-29 09:58 | Outpatient (CLI) | payer MEDICARE, SELFPAY ==
[2023-01-29 11:31] LABS: Hematocrit 37.5 % (41-53); Hemoglobin 12.5 g/dL (13.5-17.5); Mean Corpuscular HGB Conc 33.4 % (30-36); Mean Corpuscular Hemoglobin 27.2 PG (26-34); Mean Corpuscular Volume 81.6 fL (80-100); Platelet Count 182 X10^3/uL (150-400); Red Blood Cell Count 4.59 X10^6/uL (4.5-5.9); Red Cell Distribution Width 16.9 % (11.6-14.8); White Blood Cell Count 6.9 X10^3/uL (4.5-11.0)
[2023-01-29 12:07] LABS: HEMOLYSIS < 15 (0-50); Iron 84 ug/dL (49-181)
[2023-01-29 12:14] LABS: Lactate Dehydrogenase 204 U/L (120-246); Magnesium 2.1 mg/dL (1.6-2.3)
[2023-01-29 12:16] LABS: Percent Iron Saturation 23 % (20-50); Total Iron Binding Capacity 369 ug/dL (261-462); Transferrin 285 mg/dL (206-381)
[2023-01-29 12:41] LABS: TSH w/ Reflex to FT4 3.58 uIU/mL (0.47-4.68)
[2023-01-29 12:50] LABS: Ferritin 111 ng/mL (18-464)
[2023-01-29 13:21] LABS: Folate 11.6 ng/mL (2.76-20.0); Vitamin B12 257 pg/mL (239-931)
[2023-01-30 07:36] LABS: Haptoglobin 130 mg/dL (38-329)
== END ==
PROVIDERS: PCP Internal Medicine; Referring Provider Internal Medicine; Visit Provider Internal Medicine
DX: I10 Essential (primary) hypertension (principal); D64.9 Anemia, unspecified; E87.6 Hypokalemia
CPT/HCPCS: 36415; 82607; 82728; 82746; 83010; 83540; 83550; 83615; 83735; 84443; 85027

== ENCOUNTER → 2023-03-23 10:21 | Outpatient (CLI) | payer MEDICARE, SELFPAY ==
[2023-03-23 11:47] LABS: BUN Creatinine Ratio 17.1 (6-22); Blood Urea Nitrogen 19 mg/dL (9-20); Calcium 8.5 mg/dL (8.4-10.2); Carbon Dioxide 29 mmol/L (22-32); Chloride 103 mmol/L (98-107); Estimated Glomerular Filt Rate > 60 mL/min (>60); Glucose 81 mg/dL (80-110); HEMOLYSIS < 15 (0-50); Magnesium 2.2 mg/dL (1.6-2.3); Potassium 3.9 mmol/L (3.4-5.1); Sodium 138 mmol/L (137-145)
== END ==
PROVIDERS: PCP Internal Medicine; Referring Provider Internal Medicine; Visit Provider Internal Medicine
DX: E87.6 Hypokalemia (principal); I10 Essential (primary) hypertension
CPT/HCPCS: 36415; 80048; 83735

== ENCOUNTER → 2023-06-22 08:50 | Outpatient (CLI) | payer MEDICARE, SELFPAY ==
--- NOTE | 2023-06-22 08:51 | DI.CT.S_ITS ---
PROCEDURE: CT CHEST WO CON INDICATIONS: H/o lung cancer, dyspnea, eval for change TECHNIQUE: Noncontrast 5 mm thick sections acquired from the pulmonary apices to the posterior costophrenic angles. 1 mm lung window, 5 mm thick coronal and sagittal and 7 mm axial MIP reformats were then acquired. For radiation dose reduction, the following was used: automated exposure control, adjustment of mA and/or kV according to patient size. COMPARISON: [facility], CT, CT CHEST WITHOUT CONTRAST, 11/17/2021, 11:50. [facility], CT, CT CHEST WITHOUT CONTRAST, 12/07/2020, 7:47. FINDINGS: Image quality: Excellent. Lungs and pleura: Moderate paraseptal emphysema. Left lobectomy. No acute air space opacities. No pleural effusions or pneumothorax. Central and peripheral airways are patent and normal in caliber. Mediastinum: Heart size is normal. Moderate coronary artery calcifications. No pericardial effusion. No mediastinal adenopathy by size criteria. Thoracic aorta and central pulmonary arteries are normal in size. Esophagus is normal in caliber. Small hiatal hernia. Bones and chest wall: No suspicious bony lesions. No vertebral body compression fractures. No axillary or supraclavicular adenopathy by size criteria. Thyroid gland is unremarkable . Abdomen: Visualized upper abdominal solid organs and bowel loops appear normal in the absence of contrast. Diverticulosis. IMPRESSION: 1. No significant interval change. No acute airspace opacity. 2. Prior left lobectomy. No metastatic disease. Dictated by: Dereck Scott M.D. on 06/22/2023 at 9:38 Approved by: Dereck Scott M.D. on 06/22/2023 at 9:45
== END ==
PROVIDERS: PCP Internal Medicine; Referring Provider Internal Medicine Critical Care Medicine; Visit Provider Internal Medicine Critical Care Medicine
DX: C34.12 Malignant neoplasm of upper lobe, left bronchus or lung (principal); Z98.890 Other specified postprocedural states
CPT/HCPCS: 71250

== ENCOUNTER → 2023-06-29 07:38 | Outpatient (CLI) | payer MEDICARE, SELFPAY | PROVIDERS: PCP Internal Medicine; Referring Provider Internal Medicine Critical Care Medicine; Visit Provider Internal Medicine Critical Care Medicine | DX: J44.9 Chronic obstructive pulmonary disease, unspecified (principal); Z87.891 Personal history of nicotine dependence | CPT/HCPCS: 94060; 94729 ==

== ENCOUNTER → 2024-02-15 08:45 | Outpatient (CLI) | payer MEDICARE, SELFPAY ==
[2024-02-15 09:52] LABS: Add Manual Diff / Slide Review NO; Basophils Absolute Auto 0 /uL (0-100); Basophils Percent Auto 0.3 % (0-2); Eosinophils Absolute Auto 100 /uL (0-450); Hematocrit 41.5 % (41-53); Hemoglobin 13.8 g/dL (13.5-17.5); Lymphocytes Absolute Auto 1700 /uL (1100-4500); Lymphocytes Percent Auto 18.8 % (25-40); Mean Corpuscular HGB Conc 33.3 % (30-36); Mean Corpuscular Hemoglobin 28.4 PG (26-34); Mean Corpuscular Volume 85.2 fL (80-100); Monocytes Absolute Auto 800 /uL (0-900); Monocytes Percent Auto 8.8 % (3-14); Neutrophils Absolute Auto 6500 /uL (1500-7000); Neutrophils Percent Auto 71.1 % (50-75); Platelet Count 160 X10^3/uL (150-400); Red Blood Cell Count 4.87 X10^6/uL (4.5-5.9); Red Cell Distribution Width 17.6 % (11.6-14.8); White Blood Cell Count 9.2 X10^3/uL (4.5-11.0)
[2024-02-15 10:13] LABS: Alanine Aminotransferase 50 IU/L (<50); Albumin 4.2 g/dL (3.5-5.0); Albumin Globulin Ratio 1.9 (1.0-2.8); Alkaline Phosphatase 69 U/L (38-126); Aspartate Aminotransferase 48 IU/L (17-59); BUN Creatinine Ratio 24.2 (6-22); Bilirubin Total 1.1 mg/dL (0.2-1.3); Blood Urea Nitrogen 32 mg/dL (9-20); Calcium 9.1 mg/dL (8.4-10.2); Carbon Dioxide 32 mmol/L (22-32); Chloride 103 mmol/L (98-107); Cholesterol 151 mg/dL (140-199); Estimated Glomerular Filt Rate 53 mL/min (>60); Globulin 2.2 g/dL (1.7-4.1); Glucose 98 mg/dL (80-110); HDL Cholesterol 88 mg/dL (40-60); HEMOLYSIS < 15 (0-50); LDL Cholesterol Calculated 30 mg/dL (<100); Potassium 3.9 mmol/L (3.4-5.1); Sodium 139 mmol/L (137-145); Total Protein 6.4 g/dL (6.3-8.2); Triglycerides 167 mg/dL (35-150)
== END ==
PROVIDERS: PCP Internal Medicine; Referring Provider Internal Medicine; Visit Provider Internal Medicine
DX: I10 Essential (primary) hypertension (principal); J44.9 Chronic obstructive pulmonary disease, unspecified; I48.20 Chronic atrial fibrillation, unspecified; E78.2 Mixed hyperlipidemia; Z79.01 Long term (current) use of anticoagulants
CPT/HCPCS: 36415; 80053; 80061; 85025

== ENCOUNTER → 2024-05-16 09:16 | Outpatient (CLI) | payer MEDICARE, SELFPAY ==
--- NOTE | 2024-05-16 09:17 | DI.CT.S_ITS ---
PROCEDURE: CT CHEST HIGH RESOLUTION INDICATIONS: History of lobectomy and lung cancer, severe shortness breath TECHNIQUE: Noncontrast 1.0 and 5.0 mm thick contiguous axial sections from the pulmonary apex to the posterior costophrenic angles, with 7 mm thick coronal and sagittal MIP reformats. 1 mm thick dynamic expiratory images acquired through the upper, mid, and lower lungs. 1.0 mm thick axial sections acquired from the ruth to the posterior costophrenic angles in the prone end-inspiration position. For radiation dose reduction, the following was used: automated exposure control, adjustment of mA and/or kV according to patient size. COMPARISON: [facility], CT, CT CHEST WO CON, 06/22/2023, 8:56. FINDINGS: Image quality: Diagnostic Lungs and pleura: Left lobectomy changes. Relatively hyperexpanded lung parenchyma in the left hemithorax, seen on expiratory images, likely postsurgical changes. Mild areas of air trapping otherwise, likely physiologic. Background emphysematous changes. No dense airspace disease or pleural effusion. Scattered areas of scarring. No overtly suspicious nodule. Please note patient was unable to lie prone so prone images were not obtained. Mediastinum, heart, and esophagus: Small hiatal hernia. Cardiomegaly. Coronary calcifications. Cardiac annular and valvular calcifications. No pathologic lymph nodes by size criteria. Chest wall and thyroid: Diminutive thyroid. Chest wall is unremarkable Upper abdomen: Possible adrenal thickening is similar to prior, but only partially seen. No gross abnormality otherwise on these limited non-contrast images Bones: There are degenerative changes. No acute or suspicious findings. IMPRESSION: No dense airspace disease or pleural effusion. Left lung postsurgical changes. No evidence of underlying fibrotic lung disease. On this limited noncontrast CT, no evidence of active metastatic disease. Background emphysematous changes. Consider follow-up dedicated oncologic staging CT or PET-CT if clinically indicated Other findings above. Dictated by: Rex Gaona M.D. on 05/16/2024 at 16:24 Approved by: Rex Gaona M.D. on 05/16/2024 at 16:30
== END ==
PROVIDERS: PCP Internal Medicine; Referring Provider Internal Medicine Critical Care Medicine; Visit Provider Internal Medicine Critical Care Medicine
DX: C34.12 Malignant neoplasm of upper lobe, left bronchus or lung (principal); J98.4 Other disorders of lung; I51.7 Cardiomegaly; I34.81 Nonrheumatic mitral (valve) annulus calcification; K44.9 Diaphragmatic hernia without obstruction or gangrene; Z90.2 Acquired absence of lung [part of]
CPT/HCPCS: 71250

== ENCOUNTER → 2024-06-18 09:12 | Outpatient (CLI) | payer MEDICARE, SELFPAY ==
[2024-06-18 11:07] LABS: Alanine Aminotransferase 46 IU/L (<50); Albumin Globulin Ratio 1.5 (1.0-2.8); Alkaline Phosphatase 68 U/L (38-126); Aspartate Aminotransferase 31 IU/L (17-59); BUN Creatinine Ratio 24.6 (6-22); Bilirubin Total 0.9 mg/dL (0.2-1.3); Blood Urea Nitrogen 29 mg/dL (9-20); Calcium 9.7 mg/dL (8.4-10.2); Carbon Dioxide 29 mmol/L (22-32); Chloride 101 mmol/L (98-107); Estimated Glomerular Filt Rate > 60 mL/min (>60); Globulin 2.6 g/dL (1.7-4.1); Glucose 126 mg/dL (80-110); HEMOLYSIS < 15 (0-50); Magnesium 1.9 mg/dL (1.6-2.3); Potassium 3.9 mmol/L (3.4-5.1); Sodium 137 mmol/L (137-145); Total Protein 6.6 g/dL (6.3-8.2)
[2024-06-18 11:38] LABS: TSH w/ Reflex to FT4 2.65 uIU/mL (0.47-4.68)
== END ==
PROVIDERS: PCP Internal Medicine; Referring Provider Internal Medicine; Visit Provider Internal Medicine
DX: I10 Essential (primary) hypertension (principal); J43.2 Centrilobular emphysema; G25.0 Essential tremor; E78.2 Mixed hyperlipidemia; L65.9 Nonscarring hair loss, unspecified
CPT/HCPCS: 36415; 80053; 83735; 84443

== ENCOUNTER → 2025-05-27 09:02 | Outpatient (CLI) | payer MEDICARE, SELFPAY ==
[2025-05-27 09:58] LABS: Add Manual Diff / Slide Review NO; Hematocrit 39.6 % (41-53); Hemoglobin 13.3 g/dL (13.5-17.5); Lymphocytes Absolute Auto 900 /uL (1100-4500); Mean Corpuscular HGB Conc 33.5 % (30-36); Mean Corpuscular Hemoglobin 27.0 PG (26-34); Mean Corpuscular Volume 80.6 fL (80-100); Platelet Count 216 X10^3/uL (150-400)
[2025-05-27 10:16] LABS: Alanine Aminotransferase 23 IU/L (<50); Albumin 4.1 g/dL (3.5-5.0); Albumin Globulin Ratio 1.6 (1.0-2.8); Alkaline Phosphatase 86 U/L (38-126); Blood Urea Nitrogen 23 mg/dL (9-20); Calcium 9.0 mg/dL (8.4-10.2); Carbon Dioxide 29 mmol/L (22-32); Chloride 103 mmol/L (98-107); Estimated Glomerular Filt Rate > 60 mL/min (>60); Globulin 2.5 g/dL (1.7-4.1); Glucose 92 mg/dL (70-99); HEMOLYSIS < 15 (0-50); Potassium 3.8 mmol/L (3.4-5.1); Sodium 140 mmol/L (137-145); Total Protein 6.6 g/dL (6.3-8.2); Uric Acid 5.4 mg/dL (3.5-8.5)
[2025-05-27 10:49] LABS: TSH w/ Reflex to FT4 3.89 uIU/mL (0.47-4.68)
== END ==
PROVIDERS: PCP Internal Medicine; Referring Provider Internal Medicine; Visit Provider Internal Medicine
DX: I10 Essential (primary) hypertension (principal); E78.2 Mixed hyperlipidemia; J43.2 Centrilobular emphysema
CPT/HCPCS: 36415; 80053; 84443; 84550; 85025

== ENCOUNTER → 2025-07-02 10:53 | Outpatient (CLI) | payer MEDICARE, SELFPAY ==
[2025-07-02 12:02] LABS: Add Manual Diff / Slide Review NO; Hematocrit 38.3 % (41-53); Hemoglobin 12.8 g/dL (13.5-17.5); Lymphocytes Absolute Auto 1000 /uL (1100-4500); Mean Corpuscular HGB Conc 33.5 % (30-36); Mean Corpuscular Hemoglobin 27.0 PG (26-34); Mean Corpuscular Volume 80.8 fL (80-100); Platelet Count 228 X10^3/uL (150-400)
[2025-07-02 12:20] LABS: Alanine Aminotransferase 25 IU/L (<50); Albumin 3.8 g/dL (3.5-5.0); Albumin Globulin Ratio 1.5 (1.0-2.8); Alkaline Phosphatase 90 U/L (38-126); Blood Urea Nitrogen 27 mg/dL (9-20); Calcium 8.9 mg/dL (8.4-10.2); Carbon Dioxide 30 mmol/L (22-32); Chloride 98 mmol/L (98-107); Estimated Glomerular Filt Rate 59 mL/min (>60); Globulin 2.6 g/dL (1.7-4.1); Glucose 79 mg/dL (70-99); HEMOLYSIS < 15 (0-50); Magnesium 2.0 mg/dL (1.6-2.3); Potassium 3.0 mmol/L (3.4-5.1); Sodium 138 mmol/L (137-145); Total Protein 6.4 g/dL (6.3-8.2)
== END ==
PROVIDERS: PCP Internal Medicine; Referring Provider Internal Medicine; Visit Provider Internal Medicine
DX: I10 Essential (primary) hypertension (principal); E78.2 Mixed hyperlipidemia; I48.20 Chronic atrial fibrillation, unspecified; Z79.01 Long term (current) use of anticoagulants
CPT/HCPCS: 36415; 80053; 83735; 85025

== ENCOUNTER → 2025-08-03 09:57 | Outpatient (CLI) | payer MEDICARE, SELFPAY ==
--- NOTE | 2025-08-03 10:01 | DI.CT.S_ITS ---
PROCEDURE: CT CHEST W CON INDICATIONS: right upper lobe cavitary lesion TECHNIQUE: After the administration of intravenous contrast, 5 mm thick sections acquired from the pulmonary apices to the posterior costophrenic angles. 1 mm axial lung, 5 mm thick coronal and sagittal reformats and 7 mm axial MIP were acquired. For radiation dose reduction, the following was used: automated exposure control, adjustment of mA and/or kV according to patient size. COMPARISON: [facility], CT, CT ANGIO CHEST ABDOMEN PELVIS, 06/17/2025, 21:22. [facility], CT, CT CHEST HIGH RESOLUTION, 05/16/2024, 9:47. [facility], CT, CT CHEST WO CON, 06/22/2023, 8:56. FINDINGS: Image quality: Diagnostic. Lower Neck: No enlarged lymph nodes. Thyroid: No thyroid nodules which require sonographic follow up, per consensus guidelines. Axillae: No enlarged lymph nodes. Chest Wall: Unremarkable. Bones: No suspicious osseous lesion. Shoulder DJD. Lungs and Pleura: Moderate predominantly centrilobular emphysema. Right upper lobe juxta fissural ground-glass opacity measuring 1.6 x 1.5 cm, (), previously 3 x 2.8 cm on 06/17/2025. There is a small consolidative or solid component measuring at 0.6 cm. Small area of suspected centrilobular emphysema or cavitation at the right lateral aspect. The central cavitation is no longer appreciated and potentially could be filled with debris resulting in the appearance of a central solid pulmonary nodule. A few punctate calcified granulomas. The central airways are clear. Left upper lobectomy. Left apex ground-glass nodular opacities are resolved. No pleural effusion. No pneumothorax. Heart: Heart size is normal. Coronary artery calcifications. No pericardial effusion. 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 Ascending thoracic aorta measures 3.9 cm. No acute aortic syndrome. Extensive atherosclerotic plaque. Mediastinum and Kelli: No enlarged lymph nodes. Esophagus: No wall thickening. Small to moderate-sized hiatal hernia. Upper Abdomen: Visualized upper abdomen solid organs and bowel loops appear normal. IMPRESSION: 1. Right upper lobe ground-glass opacity is decreased in size and density compared to 06/17/2025. Small solid pulmonary nodule versus central cavity filled with debris. -Recommend follow-up CT chest in 3-6 months. 2. Left upper lobectomy. No adenopathy. 3. 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 Ascending aorta measures 3.9 cm. No acute aortic syndrome. Extensive atherosclerotic plaque. 4. Small to moderate-sized hiatal hernia. Dictated by: Dereck Scott M.D. on 08/13/2025 at 16:43 Approved by: Dereck Scott M.D. on 08/13/2025 at 17:02
== END ==
LOC: CT 10:01
PROVIDERS: PCP Internal Medicine; Referring Provider Internal Medicine; Visit Provider Internal Medicine
DX: J18.1 Lobar pneumonia, unspecified organism (principal); I25.10 Atherosclerotic heart disease of native coronary artery without angina pectoris; K44.9 Diaphragmatic hernia without obstruction or gangrene; J43.2 Centrilobular emphysema
CPT/HCPCS: 71260; Q9967